=== PATIENT | female | born 1960 | race Caucasian/White ===

== ENCOUNTER 2016-12-12 20:12 | Inpatient (IN) | payer OTHER ==
[2016-12-12 20:34] LABS: Glucose,Whole Blood 100 mg/dL (75-99)
[2016-12-12] MEDS ORDERED: RX INFO: IV CONTRAST WAS GIVEN 1 EACH MISC MISCELLANE PRN (20:36)
[2016-12-12] MEDS ORDERED: diphenhydrAMINE 50 MG/ML 1 ML VIAL IVP STA (20:37)
[2016-12-12] MEDS ORDERED: FAMOTIDINE 20 MG/2 ML VIAL IV STA (20:37)
[2016-12-12] MEDS ORDERED: methylPREDNISolone SOD SUCCI 125 MG/2 ML VIAL IV STA (20:37)
--- NOTE | 2016-12-12 20:41 | ED ---
Neuro HPI - General Chief Complaint: Neuro Symptoms/Deficit Stated Complaint: facial & arm numbness Time Seen by Provider: 12/12/16 20:25 Source: patient, RN notes reviewed Mode of arrival: wheelchair Limitations: no limitations - History of Present Illness Is the patient presenting with stroke symptoms?: Yes Initial Comments: This is a 56-year-old female with history of smoking for many years who states she had the onset around 4:30 today of some right arm weakness but later developed left facial weakness left arm weakness and also some left leg weakness. She states her right arm she believes is secondary to musculoskeletal issues. She also has a nonspecific headache. She's never had a stroke before she was at work trying hard she thought the arm issue with the right arm was from moving parts. No other complaints at this time she has any shortness breath or chest pain. - Related Data Home Medications: Home Medications Medication Instructions Recorded Confirmed ALPRAZolam [Xanax] 1 mg PO TID PRN 01/05/15 12/12/16 Cyclobenzaprine [Flexeril] 10 mg PO TID 01/05/15 12/12/16 HYDROcodone/APAP 10-325MG [Mineral 1 tab PO QID PRN 01/05/15 12/12/16 10-325] Allergies/Adverse Reactions: Allergies Allergy/AdvReac Type Severity Reaction Status Date / Time Iodinated Contrast- Oral and Allergy Intermediate Anaphylaxis Verified 12/12/16 21:15 IV Dye aspirin Allergy Nausea & Verified 12/12/16 21:15 Vomiting Review of Systems ROS Statement: Those systems with pertinent positive or pertinent negative responses have been documented in the HPI. ROS Other: All systems not noted in ROS Statement are negative. General Exam - General Exam Comments Initial Comments: this is a little well-nourished awake alert very anxious appearing femalepatient is noted be hyperventilating. Limitations: no limitations General appearance: alert, anxious, in distress Head exam: Present: atraumatic, normocephalic, normal inspection Eye exam: Present: normal appearance, PERRL, EOMI. Absent: scleral icterus, conjunctival injection, periorbital swelling ENT exam: Present: normal exam, other ((A she'll asymmetry with flattening of nasolabial fold compared to the right forehead appears be spared) Neck exam: Present: normal inspection, tenderness (tenderness palpation of left lateral neck musculature.). Absent: meningismus, lymphadenopathy Respiratory exam: Present: other (patient is noted be hyperventilating) Cardiovascular Exam: Present: regular rate, normal rhythm, normal heart sounds. Absent: systolic murmur, diastolic murmur, rubs, gallop, clicks GI/Abdominal exam: Present: soft, normal bowel sounds. Absent: distended, tenderness, guarding, rebound, rigid Extremities exam: Present: normal inspection, normal capillary refill. Absent: full ROM Back exam: Present: normal inspection Neurological exam: Present: alert, oriented X3, motor sensory deficit. Absent: CN II-XII intact Psychiatric exam: Present: anxious Skin exam: Present: warm, dry, intact, normal color. Absent: rash Stroke MDM - Lab Data Result diagrams: 12/12/16 20:34 12/12/16 20:34 Lab Results 12/12/16 12/12/16 12/12/16 Range/Units 20:33 20:34 20:34 WBC 13.9 H (3.8-10.6) k/uL RBC 4.59 (3.80-5.40) m/uL Hgb 14.7 (11.4-16.0) gm/dL Hct 46.8 H (34.0-46.0) % MCV 101.9 H (80.0-100.0) fL MCH 32.0 (25.0-35.0) pg MCHC 31.4 (31.0-37.0) g/dL RDW 13.3 (11.5-15.5) % Plt Count 569 H (150-450) k/uL Neutrophils % 72 % Lymphocytes % 23 % Monocytes % 4 % Eosinophils % 0 % Basophils % 0 % Neutrophils # 10.1 H (1.3-7.7) k/uL Lymphocytes # 3.1 (1.0-4.8) k/uL Monocytes # 0.5 (0-1.0) k/uL Eosinophils # 0.1 (0-0.7) k/uL Basophils # 0.0 (0-0.2) k/uL Macrocytosis Slight PT (9.0-12.0) sec INR (<1.2) APTT (22.0-30.0) sec Sodium (137-145) mmol/L Potassium (3.5-5.1) mmol/L Chloride (98-107) mmol/L Carbon Dioxide (22-30) mmol/L Anion Gap mmol/L BUN (7-17) mg/dL Creatinine (0.52-1.04) mg/dL Est GFR (MDRD) Af Amer (>60 ml/min/1.73 sqM) Est GFR (MDRD) Non-Af (>60 ml/min/1.73 sqM) Glucose (74-99) mg/dL POC Glucose (mg/dL) 100 H (75-99) mg/dL POC Glu Manager Telemetry ID Fiordaliza Treadwell Calcium (8.4-10.2) mg/dL Total Bilirubin (0.2-1.3) mg/dL AST (14-36) U/L ALT (9-52) U/L Alkaline Phosphatase (38-126) U/L Total Creatine Kinase 52 (30-135) U/L CK-MB (CK-2) 0.9 (0.0-2.4) ng/mL CK-MB (CK-2) Rel Index 1.7 Troponin I <0.012 (0.000-0.034) ng/mL Total Protein (6.3-8.2) g/dL Albumin (3.5-5.0) g/dL 12/12/16 12/12/16 Range/Units 20:34 20:34 WBC (3.8-10.6) k/uL RBC (3.80-5.40) m/uL Hgb (11.4-16.0) gm/dL Hct (34.0-46.0) % MCV (80.0-100.0) fL MCH (25.0-35.0) pg MCHC (31.0-37.0) g/dL RDW (11.5-15.5) % Plt Count (150-450) k/uL Neutrophils % % Lymphocytes % % Monocytes % % Eosinophils % % Basophils % % Neutrophils # (1.3-7.7) k/uL Lymphocytes # (1.0-4.8) k/uL Monocytes # (0-1.0) k/uL Eosinophils # (0-0.7) k/uL Basophils # (0-0.2) k/uL Macrocytosis PT 10.9 (9.0-12.0) sec INR 1.1 (<1.2) APTT 24.9 (22.0-30.0) sec Sodium 142 (137-145) mmol/L Potassium 3.5 (3.5-5.1) mmol/L Chloride 109 H (98-107) mmol/L Carbon Dioxide 19 L (22-30) mmol/L Anion Gap 14 mmol/L BUN 20 H (7-17) mg/dL Creatinine 1.13 H (0.52-1.04) mg/dL Est GFR (MDRD) Af Amer >60 (>60 ml/min/1.73 sqM) Est GFR (MDRD) Non-Af 50 (>60 ml/min/1.73 sqM) Glucose 94 (74-99) mg/dL POC Glucose (mg/dL) (75-99) mg/dL POC Glu Manager Telemetry ID Calcium 10.3 H (8.4-10.2) mg/dL Total Bilirubin 0.3 (0.2-1.3) mg/dL AST 18 (14-36) U/L ALT 23 (9-52) U/L Alkaline Phosphatase 144 H (38-126) U/L Total Creatine Kinase (30-135) U/L CK-MB (CK-2) (0.0-2.4) ng/mL CK-MB (CK-2) Rel Index Troponin I (0.000-0.034) ng/mL Total Protein 8.0 (6.3-8.2) g/dL Albumin 4.9 (3.5-5.0) g/dL - NIH Stroke Scale 1a. Level of Consciousness: (0) alert 1b. LOC Questions: (0) answers correctly 1c. LOC Commands: (0) performs tasks correctly 2. Best Gaze: (0) normal 3. Visual: (0) no visual loss 4. Facial Palsy: (1) minor paralysis 5a. Motor Arm Left: (2) some gravity effort 5b. Motor Arm Right: (0) no drift 6a. Motor Leg Left: (2) some gravity effort 6b. Motor Leg Right: (0) no drift 7. Limb Ataxia: (0) absent 8. Sensory: (1) mild/moderate sensory loss 9. Best Language: (0) no aphasia 10. Dysarthria: (0) normal 11. Extinction/Inattention: (0) no abnormality - Medical Decision Making patient did get improvement in her symptoms she will be admitted with neurological consultation. - EKG Data -: EKG Interpreted by Me EKG shows normal: sinus rhythm (sinus tachycardia rate of 106. 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 Lump on left post mandibular area, soft and movable has had for 2 years. History of Any Multi-Drug Resistant Organisms: None Reported Past Surgical History: Appendectomy, Cholecystectomy, Hysterectomy, Orthopedic Surgery, Tonsillectomy Additional Past Surgical History / Comment(s): right shoulder and left elbow Past Anesthesia/Blood Transfusion Reactions: No Reported Reaction Past Psychological History: Anxiety Smoking Status: Current every day smoker Past Alcohol Use History: None Reported Past Drug Use History: None Reported - Past Family History Mother Family Medical History: Diabetes Mellitus Father Family Medical History: Cancer Additional Family Medical History / Comment(s): of bone cancer Course Vital Signs 12/12/16 12/12/16 12/12/16 20:20 20:46 20:51 Temperature 98.5 F Pulse Rate 90 94 89 Respiratory 20 20 20 Rate Blood Pressure 165/82 142/88 142/83 O2 Sat by Pulse 98 98 100 Oximetry 12/12/16 12/12/16 12/12/16 21:15 21:21 21:36 Temperature Pulse Rate 92 93 89 Respiratory 20 16 16 Rate Blood Pressure 168/96 142/94 139/86 O2 Sat by Pulse 98 98 98 Oximetry 12/12/16 12/12/16 12/12/16 21:54 22:06 22:21 Temperature Pulse Rate 88 88 86 Respiratory 16 16 16 Rate Blood Pressure 126/85 116/83 128/87 O2 Sat by Pulse 98 98 97 Oximetry - Reevaluation(s) Reevaluation #1: 12/12/16 22:16 Reevaluation patient reveals that she has improvement in her symptoms she still feels some numbness to left side of her face Reevaluation #2: 12/12/16 22:37 this case was discussed with interventional radiology patient is not a candidate for TPA or thrombectomy ECTs are negative for acute findings Critical Care Time Critical Care Time: Yes Critical Care Time: 36 minutes of critical care time which includes initial presentation with history physical labs x-rays several reevaluation of the patient to response to initial supportive care discussed with the admitting physician admission orders and documentation of the above. Disposition Clinical Impression: Transient cerebral ischemia Disposition: ADMITTED IP TO THIS [facility] Condition: Stable Referrals: Adi Smith MD [Primary Care Provider] - 1-2 days
[2016-12-12 20:45] LABS: Basophils % (A) 0 %; CH 32.6; CHCM 32.2; Eosinophils # (A) 0.1 k/uL (0-0.7); Eosinophils % (A) 0 %; HCT 46.8 % (34.0-46.0); HGB 14.7 gm/dL (11.4-16.0); Luc # (Auto) 0.13; Luc % (Auto) 1; Lymphocytes # (A) 3.1 k/uL (1.0-4.8); Lymphocytes % (A) 23 %; MCHC 31.4 g/dL (31.0-37.0); MCV 101.9 fL (80.0-100.0); Macrocytosis Slight; Mean Platelet Volume 6.4; Monocytes # (A) 0.5 k/uL (0-1.0); Monocytes % (A) 4 %; Neutrophils # (A) 10.1 k/uL (1.3-7.7); Neutrophils % (A) 72 %; RBC 4.59 m/uL (3.80-5.40); RDW 13.3 % (11.5-15.5); WBC 13.9 k/uL (3.8-10.6); WBC (Perox) 13.35
[2016-12-12 20:56] LABS: INR 1.1 (<1.2); Partial Thromboplastin Time 24.9 sec (22.0-30.0); Prothrombin Time 10.9 sec (9.0-12.0)
[2016-12-12 21:02] LABS: ALT 23 U/L (9-52); AST 18 U/L (14-36); Alkaline Phosphatase 144 U/L (38-126); Anion Gap 14 mmol/L; Blood Urea Nitrogen 20 mg/dL (7-17); Calcium 10.3 mg/dL (8.4-10.2); Carbon Dioxide 19 mmol/L (22-30); Chloride 109 mmol/L (98-107); Glucose 94 mg/dL (74-99); Non-African American GFR(MDRD) 50 (>60 ml/min/1.73 sqM); Potassium 3.5 mmol/L (3.5-5.1); Sodium 142 mmol/L (137-145); Total Bilirubin 0.3 mg/dL (0.2-1.3)
--- NOTE | 2016-12-12 21:03 | CT ---
EXAMINATION TYPE: CT brain wo con for TPA DATE OF EXAM: 12/12/2016 COMPARISON: 06/02/2008 HISTORY: FACIAL NUMBNESS. CT DLP: 998.4 mGycm Automated exposure control for dose reduction was used. FINDINGS: Ventricles and sulci appear normal. There is no mass effect nor midline shift. There is no sign of in tracranial hemorrhage. The calvarium appears intact. IMPRESSION: NEGATIVE CT SCAN OF THE BRAIN. NO CHANGE.
[2016-12-12 21:04] LABS: Creatine Kinase 52 U/L (30-135)
[2016-12-12 21:14] LABS: Creatine Kinase MB 0.9 ng/mL (0.0-2.4); Troponin I <0.012 ng/mL (0.000-0.034)
--- NOTE | 2016-12-12 21:18 | CT ---
EXAMINATION TYPE: CT angio head neck DATE OF EXAM: 12/12/2016 HISTORY: FACIAL NUMBNESS. COMPARISON: NONE CT DLP: 217.1 mGycm. Automated Exposure Control for Dose Reduction was Utilized. TECHNIQUE: CTA scan of the neck is performed with IV Contrast, patient injected with 65 mL of Omnipa que 350, axial images are obtained, coronal and sagittal reformatted images are reviewed. Three-D rec onstructed images are created on an independent workstation and reviewed. FINDINGS: There is cystic enlargement of the right thyroid lobe. There is normal branching pattern of the great vessels on the aortic arch. There is bilateral arterial flow in the vertebral arteries. There is art erial flow in the common internal and external carotid arteries. Carotid arteries appear widely paten t. There is no evidence of dissection. There is arterial flow in the anterior middle and posterior cerebral arteries. There is no sign of an eurysm or neovascularity. There is normal contrast opacification of the venous sinuses. There is rosalie rial flow in the vertebrobasilar artery system. CONCLUSION: Negative CT angiogram of the brain. Negative CT angiogram of the neck.
--- NOTE | 2016-12-12 21:20 | XR ---
EXAMINATION TYPE: XR chest 2V DATE OF EXAM: 12/12/2016 COMPARISON: NONE HISTORY: Altered mental status TECHNIQUE: Frontal and lateral views of the chest are obtained. FINDINGS: The heart and mediastinum are normal. Lungs are clear. Diaphragm is normal. Bony thorax is intact. There are chest leads. IMPRESSION: Normal chest. There is clearing of mild pulmonary interstitial density compared to old e xam.
[2016-12-12] MEDS ORDERED: KETOROLAC 30 MG/ML 1 ML VIAL IVP STA (21:25)
--- NOTE | 2016-12-12 22:41 | ED ---
Medical Decision Making - Medical Decision Making We did discuss the need for smoking cessation the told conversation lasted 3.1 minutes. - Lab Data Result diagrams: 12/12/16 20:34 12/12/16 20:34 Lab Results 12/12/16 12/12/16 12/12/16 Range/Units 20:33 20:34 20:34 WBC 13.9 H (3.8-10.6) k/uL RBC 4.59 (3.80-5.40) m/uL Hgb 14.7 (11.4-16.0) gm/dL Hct 46.8 H (34.0-46.0) % MCV 101.9 H (80.0-100.0) fL MCH 32.0 (25.0-35.0) pg MCHC 31.4 (31.0-37.0) g/dL RDW 13.3 (11.5-15.5) % Plt Count 569 H (150-450) k/uL Neutrophils % 72 % Lymphocytes % 23 % Monocytes % 4 % Eosinophils % 0 % Basophils % 0 % Neutrophils # 10.1 H (1.3-7.7) k/uL Lymphocytes # 3.1 (1.0-4.8) k/uL Monocytes # 0.5 (0-1.0) k/uL Eosinophils # 0.1 (0-0.7) k/uL Basophils # 0.0 (0-0.2) k/uL Macrocytosis Slight PT (9.0-12.0) sec INR (<1.2) APTT (22.0-30.0) sec Sodium (137-145) mmol/L Potassium (3.5-5.1) mmol/L Chloride (98-107) mmol/L Carbon Dioxide (22-30) mmol/L Anion Gap mmol/L BUN (7-17) mg/dL Creatinine (0.52-1.04) mg/dL Est GFR (MDRD) Af Amer (>60 ml/min/1.73 sqM) Est GFR (MDRD) Non-Af (>60 ml/min/1.73 sqM) Glucose (74-99) mg/dL POC Glucose (mg/dL) 100 H (75-99) mg/dL POC Glu Lorry Weigher ID Fiordaliza Treadwell Calcium (8.4-10.2) mg/dL Total Bilirubin (0.2-1.3) mg/dL AST (14-36) U/L ALT (9-52) U/L Alkaline Phosphatase (38-126) U/L Total Creatine Kinase 52 (30-135) U/L CK-MB (CK-2) 0.9 (0.0-2.4) ng/mL CK-MB (CK-2) Rel Index 1.7 Troponin I <0.012 (0.000-0.034) ng/mL Total Protein (6.3-8.2) g/dL Albumin (3.5-5.0) g/dL 12/12/16 12/12/16 Range/Units 20:34 20:34 WBC (3.8-10.6) k/uL RBC (3.80-5.40) m/uL Hgb (11.4-16.0) gm/dL Hct (34.0-46.0) % MCV (80.0-100.0) fL MCH (25.0-35.0) pg MCHC (31.0-37.0) g/dL RDW (11.5-15.5) % Plt Count (150-450) k/uL Neutrophils % % Lymphocytes % % Monocytes % % Eosinophils % % Basophils % % Neutrophils # (1.3-7.7) k/uL Lymphocytes # (1.0-4.8) k/uL Monocytes # (0-1.0) k/uL Eosinophils # (0-0.7) k/uL Basophils # (0-0.2) k/uL Macrocytosis PT 10.9 (9.0-12.0) sec INR 1.1 (<1.2) APTT 24.9 (22.0-30.0) sec Sodium 142 (137-145) mmol/L Potassium 3.5 (3.5-5.1) mmol/L Chloride 109 H (98-107) mmol/L Carbon Dioxide 19 L (22-30) mmol/L Anion Gap 14 mmol/L BUN 20 H (7-17) mg/dL Creatinine 1.13 H (0.52-1.04) mg/dL Est GFR (MDRD) Af Amer >60 (>60 ml/min/1.73 sqM) Est GFR (MDRD) Non-Af 50 (>60 ml/min/1.73 sqM) Glucose 94 (74-99) mg/dL POC Glucose (mg/dL) (75-99) mg/dL POC Glu Lorry Weigher ID Calcium 10.3 H (8.4-10.2) mg/dL Total Bilirubin 0.3 (0.2-1.3) mg/dL AST 18 (14-36) U/L ALT 23 (9-52) U/L Alkaline Phosphatase 144 H (38-126) U/L Total Creatine Kinase (30-135) U/L CK-MB (CK-2) (0.0-2.4) ng/mL CK-MB (CK-2) Rel Index Troponin I (0.000-0.034) ng/mL Total Protein 8.0 (6.3-8.2) g/dL Albumin 4.9 (3.5-5.0) g/dL Disposition Clinical Impression: Transient cerebral ischemia, Smoking Disposition: ADMITTED IP TO THIS HOSP Condition: Stable Referrals: Adi Smith MD [Primary Care Provider] - 1-2 days
[2016-12-12 23:38] VITALS: BMI 21.6
[2016-12-13] MEDS: ALPRAZolam 0.5 MG TAB PO PRN ×4 (00:09→23:11)
[2016-12-13] MEDS: HYDROcodone/APAP 10-325MG 1 EACH TAB PO PRN ×5 (00:09→23:10)
[2016-12-13] MEDS: SODIUM CHLORIDE 0.9% 1,000 ML IV SCH ×3 (01:14→15:41)
[2016-12-13 03:27] LABS: Cholesterol 197 mg/dL (<200); HDL Cholesterol 57 mg/dL (40-60)
[2016-12-13 06:33] LABS: Appearance,Urine Clear (Clear); Bacteria,Urine Rare /hpf; Bilirubin,Urine Negative (Negative); Glucose,Urine (UA) Trace (Negative); Ketones,Urine Trace (Negative); Leukocyte Esterase,Urine Negative (Negative); Mucus,Urine Rare /hpf; Nitrite,Urine Negative (Negative); Particle Count 2945; Protein,Urine 1+ (Negative); RBC,Urine 1 /hpf (0-5); Squamous Epithelial Cell,Urine 3 /hpf (0-4); UA Billing (MACRO vs. MICRO) MICRO; Urobilinogen,Urine <2.0 mg/dL (<2.0); WBC,Urine 6 /hpf (0-5)
--- NOTE | 2016-12-13 07:05 | P.HPIM ---
History of Present Illness H&P Date: 12/13/16 Chief Complaint: Left-sided numbness. Left-sided weakness. This is a history and physical on a 56-year-old white female with history of right shoulder DJD. However, for the last several days intermittently, she's had significant problems related to left facial numbness and weakness of the left side intermittently. She had to leave work yesterday and the symptoms did not resolve on their own. She was admitted secondary to symptomatology. Computed tomography scan of the head did not show acute issue. She does demonstrate left facial weakness. 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 Tobacco use is noted. No voiding difficulties. She states visually sometimes she sees floaters but no overt amaurosis fugax stated. Review of Systems Constitutional: Denies chills, Denies fever Eyes: left tunnel vision/blind spots Ears, nose, mouth and throat: Denies headache, Denies sore throat Cardiovascular: Denies chest pain, Denies shortness of breath Genitourinary: Denies dysuria, Denies hematuria Musculoskeletal: Reports arm numbness/tingling, Reports leg numbness/tingling, Reports shooting arm pain Musculoskeletal: right: shoulder pain Integumentary: Denies pruritus, Denies rash Neurological: Reports paresthesias, Reports weakness Psychiatric: Denies anxiety, Denies depression Past Medical History Past Medical History: Asthma, Cancer, Fibromyalgia, GERD/Reflux, Pneumonia Additional Past Medical History / Comment(s): cancerous cells in hysterectomy but no chemo or radiation, 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 Lump on left post mandibular area, soft and movable has had for 2 years. History of Any Multi-Drug Resistant Organisms: None Reported Past Surgical History: Appendectomy, Cholecystectomy, Hysterectomy, Orthopedic Surgery, Tonsillectomy Additional Past Surgical History / Comment(s): right shoulder and left elbow Past Anesthesia/Blood Transfusion Reactions: Motion Sickness Additional Past Anesthesia/Blood Transfusion Reaction / Comment(s): nausea with anesthesia Past Psychological History: Anxiety Smoking Status: Current every day smoker Past Alcohol Use History: None Reported Past Drug Use History: None Reported - Past Family History Mother Family Medical History: Diabetes Mellitus Father Family Medical History: Cancer Additional Family Medical History / Comment(s): of bone cancer Medications and Allergies Home Medications Medication Instructions Recorded Confirmed Type ALPRAZolam [Xanax] 1 mg PO TID PRN 01/05/15 12/12/16 History Cyclobenzaprine [Flexeril] 10 mg PO TID 01/05/15 12/12/16 History HYDROcodone/APAP 10-325MG [[place]t 1 tab PO QID PRN 01/05/15 12/12/16 History 10-325] Allergies Allergy/AdvReac Type Severity Reaction Status Date / Time Iodinated Contrast- Oral and Allergy Intermediate Anaphylaxis Verified 12/12/16 21:15 IV Dye aspirin Allergy Nausea & Verified 12/12/16 21:15 Vomiting Physical Exam Vitals: Vital Signs Temp Pulse Pulse Resp BP BP Pulse Ox 12/13/16 04:00 81 18 105/58 95 12/13/16 00:00 96.9 F L 85 18 142/73 96 12/12/16 23:03 97.0 F L 56 L 19 103/54 100 12/12/16 22:36 88 16 115/74 98 12/12/16 22:21 86 16 128/87 97 12/12/16 22:06 88 16 116/83 98 12/12/16 21:54 88 16 126/85 98 12/12/16 21:36 89 16 139/86 98 12/12/16 21:21 93 16 142/94 98 12/12/16 21:15 92 20 168/96 98 12/12/16 20:51 89 20 142/83 100 12/12/16 20:46 94 20 142/88 98 12/12/16 20:20 98.5 F 90 20 165/82 98 Intake and Output 12/12/16 12/13/16 12/13/16 22:59 06:59 14:59 Intake Total 300 Balance 300 Intake: Oral 300 Other: Voiding Method Bedside Commode Weight 58.967 kg 52 kg - Constitutional General appearance: no acute distress - EENT Eyes: EOMI - Neck Neck: no lymphadenopathy Carotids: bilateral: upstroke normal Thyroid: bilateral: normal size - Respiratory Respiratory: bilateral: CTA - Cardiovascular Rhythm: regular Heart sounds: normal: S1, S2 Abnormal Heart Sounds: no S3 Gallop - Gastrointestinal General gastrointestinal: soft, no tenderness - Musculoskeletal Musculoskeletal: left sided weakness - Psychiatric Psychiatric: A&O x's 3 Results CBC & Chem 7: 12/12/16 20:34 12/12/16 20:34 Labs: Abnormal Lab Results - Last 24 Hours (Table) 12/12/16 12/12/16 12/12/16 Range/Units 20:33 20:34 20:34 WBC 13.9 H (3.8-10.6) k/uL Hct 46.8 H (34.0-46.0) % MCV 101.9 H (80.0-100.0) fL Plt Count 569 H (150-450) k/uL Neutrophils # 10.1 H (1.3-7.7) k/uL Chloride 109 H (98-107) mmol/L Carbon Dioxide 19 L (22-30) mmol/L BUN 20 H (7-17) mg/dL Creatinine 1.13 H (0.52-1.04) mg/dL POC Glucose (mg/dL) 100 H (75-99) mg/dL Calcium 10.3 H (8.4-10.2) mg/dL Alkaline Phosphatase 144 H (38-126) U/L Triglycerides (<150) mg/dL LDL Cholesterol, Calc (0-99) mg/dL Urine Protein (Negative) Urine Glucose (UA) (Negative) Urine Ketones (Negative) Urine Blood (Negative) Urine WBC (0-5) /hpf Urine Bacteria (None) /hpf Hyaline Casts (0-2) /lpf Urine Mucus (None) /hpf Urine Opiates Screen (NotDetected) U Tricyclic Antidepress (NotDetected) U Benzodiazepines Scrn (NotDetected) 12/12/16 12/13/16 Range/Units 20:34 05:43 WBC (3.8-10.6) k/uL Hct (34.0-46.0) % MCV (80.0-100.0) fL Plt Count (150-450) k/uL Neutrophils # (1.3-7.7) k/uL Chloride (98-107) mmol/L Carbon Dioxide (22-30) mmol/L BUN (7-17) mg/dL Creatinine (0.52-1.04) mg/dL POC Glucose (mg/dL) (75-99) mg/dL Calcium (8.4-10.2) mg/dL Alkaline Phosphatase (38-126) U/L Triglycerides 199 H (<150) mg/dL LDL Cholesterol, Calc 100 H (0-99) mg/dL Urine Protein 1+ H (Negative) Urine Glucose (UA) Trace H (Negative) Urine Ketones Trace H (Negative) Urine Blood Small H (Negative) Urine WBC 6 H (0-5) /hpf Urine Bacteria Rare H (None) /hpf Hyaline Casts 47 H (0-2) /lpf Urine Mucus Rare H (None) /hpf Urine Opiates Screen Detected H (NotDetected) U Tricyclic Antidepress Detected H (NotDetected) U Benzodiazepines Scrn Detected H (NotDetected) Thrombosis Risk Factor Assmnt - Choose All That Apply Any of the Below Risk Factors Present?: Yes Each Factor Represents 1 point: Age 41-60 years Other Risk Factors: No Other congenital or acquired thrombophilia - If yes, enter type in comment: Yes Each Risk Factor Represents 5 Points: Stroke (< 1 month) Thrombosis Risk Factor Assessment Total Risk Factor Score: 6 Thrombosis Risk Factor Assessment Level: High Risk Assessment and Plan (1) Left-sided weakness Current Visit: Yes Status: Acute Code(s): R53.1 - WEAKNESS SNOMED Code(s) : 973208066 (2) Weakness on left side of face Current Visit: Yes Status: Acute Code(s): R29.810 - FACIAL WEAKNESS SNOMED Code(s): 90390127 (3) Smoking Current Visit: Yes Status: Acute Code(s): F17.200 - NICOTINE DEPENDENCE, UNSPECIFIED, UNCOMPLICATED SNOMED Code(s): 16911367 (4) Transient cerebral ischemia Current Visit: Yes Status: Acute Code(s): G45.9 - TRANSIENT CEREBRAL ISCHEMIC ATTACK, UNSPECIFIED SNOMED Code(s): 853005325 (5) Anxiety Current Visit: No Status: Acute Code(s): F41.9 - ANXIETY DISORDER, UNSPECIFIED SNOMED Code(s): 94704856 Plan: TIA element. Check echocardiogram and carotid Doppler. Question need for MRI of the head. Neurology is consulted. Reconcile home medications. PT/OT evaluation. See orders otherwise. Given observe symptoms, prognosis is guarded. Otherwise, she is a full code. Time with Patient: Greater than 30
[2016-12-13] MEDS: CYCLOBENZAPRINE 10 MG TAB PO SCH ×3 (09:03→21:37)
[2016-12-13] MEDS: CLOPIDOGREL 75 MG TAB PO SCH (09:43)
--- NOTE | 2016-12-13 10:44 | US ---
EXAMINATION TYPE: US carotid duplex BILAT DATE OF EXAM: 12/13/2016 COMPARISON: CT angiogram of the neck 12/12/2016 CLINICAL HISTORY: Stenosis. Left-sided weakness and numbness EXAM MEASUREMENTS: RIGHT: Peak Systolic Velocity (PSV) cm/sec ----- Right CCA: 85.7 ----- Right ICA: 81.3 ----- Right ECA: 117.6 ICA/CCA ratio: 0.9 RIGHT: End Diastole cm/sec ----- Right CCA: 27.5 ----- Right ICA: 27.5 ----- Right ECA: 23.1 LEFT: Peak Systolic Velocity (PSV) cm/sec ----- Left CCA: 83.2 ----- Left ICA: 91.1 ----- Left ECA: 76.6 ICA/CCA ratio: 1.1 LEFT: End Diastole cm/sec ----- Left CCA: 31.6 ----- Left ICA: 40.9 ----- Left ECA: 17.1 VERTEBRALS (direction of flow): Right Vertebral: Antegrade Left Vertebral: Antegrade Rhythm: Normal Mild amount of plaque visualized in the left mid/distal CCA. No elevated velocities, no significant s tenosis Grayscale, color Doppler, spectral Doppler imaging performed of the carotid arteries IMPRESSION: No hemodynamic significant stenosis of the proximal internal carotid arteries bilaterall y, an indirect measurement of carotid stenosis
--- NOTE | 2016-12-13 10:54 | ECHOF ---
Referral Reason:TIA element MEASUREMENTS -------- HEIGHT: 165.1 cm WEIGHT: 51.7 kg BP: 105/58 RVIDd: 3.4 cm (< 3.3) IVSd: 1.2 cm (0.6 - 1.1) LVIDd: 4.6 cm (3.9 - 5.3) LVPWd: 1.1 cm (0.6 - 1.1) IVSs: 1.3 cm LVIDs: 3.2 cm LVPWs: 1.3 cm LA Diam: 2.9 cm (2.7 - 3.8) LAESV Index (A-L): 24.75 ml/m Ao Diam: 3.2 cm (2.0 - 3.7) AV Cusp: 1.5 cm (1.5 - 2.6) EPSS: 0.8 cm MV E Jony: 0.76 m/s MV DecT: 222 ms MV A Jony: 0.84 m/s MV E/A Ratio: 0.90 AV maxP.05 mmHg AV meanP.55 mmHg MV EF SLOPE: 77.33 mm/s (70 - 150) MV EXCURSION: 1.78 cm (> 18.000) FINDINGS -------- Sinus rhythm. This was a technically adequate study. The left ventricular size is normal. There is borderline concentric left ventricular hypertrophy. Overall left ventricular systolic function is normal with, an EF between 55 - 60 %. The right ventricle is mildly enlarged. Normal LA size by volume 22+/-6 ml/m2. The right atrium is normal in size. There is mild aortic valve sclerosis. There is mild aortic stenosis present. Peak/mean gradient a cross the Aortic Valve is 16.05mmHg / 8.55mmHg. The mitral valve leaflets are mildly thickened. There is trace mitral regurgitation. The tricuspid valve appears structurally normal. Trace/mild (physiologic) pulmonic regurgitation. The aortic root size is normal. Normal inferior vena cava with normal inspiratory collapse consistent with estimated right atrial pre ssure of 5 mmHg. There is no pericardial effusion. CONCLUSIONS -------- 1. Sinus rhythm. 2. This was a technically adequate study. 3. There is borderline concentric left ventricular hypertrophy. 4. Overall left ventricular systolic function is normal with, an EF between 55 - 60 %. 5. The right ventricle is mildly enlarged. 6. Normal LA size by volume 22+/-6 ml/m2. 7. There is mild aortic valve sclerosis. 8. There is mild aortic stenosis present. 9. Peak/mean gradient across the Aortic Valve is 16.05mmHg / 8.55mmHg. 10. The mitral valve leaflets are mildly thickened. 11. There is trace mitral regurgitation. 12. The tricuspid valve appears structurally normal. 13. Trace/mild (physiologic) pulmonic regurgitation. 14. The aortic root size is normal. 15. Normal inferior vena cava with normal inspiratory collapse consistent with estimated right atrial pressure of 5 mmHg. 16. There is no pericardial effusion. 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
[2016-12-13] MEDS: ONDANSETRON 4 MG/2 ML VIAL IVP PRN ×2 (14:06→19:35)
--- NOTE | 2016-12-13 14:48 | XR ---
Left ankle HISTORY: Pain 3 views of the left ankle Bone mineralization is reduced, joint spaces and alignment are maintained. No fracture or dislocation . No significant soft tissue swelling. Proximal fifth metatarsal not included on the exam. IMPRESSION: Suspect mild osteopenia.
--- NOTE | 2016-12-13 19:18 | P.CNNES ---
History of Present Illness Consult date: 12/13/16 History of Present Illness: the patient is a 56-year-old right-handed white female who reports that yesterday she developed right arm weakness at work/2 for about 5 minutes and then she developed some nausea and headache and she decided to drive herself home [place]. After she got home she developed left facial numbness and left arm and leg numbness the patient also reports that for about 5 minutes she couldn't speak. Her numbness continues on the left face arm and leg but her speech has been remained stable. The patient denied any symptoms like this in the past. He denied passing out. There was no double vision. She denied any headache. She has a history of long -standing history of smoking and currently smokes one pack of cigarettes a day. She had a CAT scan of the brain which was negative. She had carotid ultrasound which was negative. Which was unremarkable.at a CT angiogram of the brain and neck which was negative. The ER doctor did discuss the case with the interventional radiologist who felt that the patient was not a candidate for TPA. The current complaint is left-sided numbness. He does not take aspirin as it does cause her nausea. Risk factor for stroke is family history of stroke and smoking history. 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 Lump on left post mandibular area, soft and movable has had for 2 years. History of Any Multi-Drug Resistant Organisms: None Reported Past Surgical History: Appendectomy, Cholecystectomy, Hysterectomy, Orthopedic Surgery, Tonsillectomy Additional Past Surgical History / Comment(s): right shoulder and left elbow Past Anesthesia/Blood Transfusion Reactions: Motion Sickness Additional Past Anesthesia/Blood Transfusion Reaction / Comment(s): nausea with anesthesia Past Psychological History: Anxiety Smoking Status: Current every day smoker Past Alcohol Use History: None Reported Past Drug Use History: None Reported - Past Family History Mother Family Medical History: Diabetes Mellitus Father Family Medical History: Cancer Additional Family Medical History / Comment(s): of bone cancer Medications and Allergies Home Medications Medication Instructions Recorded Confirmed Type ALPRAZolam [Xanax] 1 mg PO TID PRN 01/05/15 12/12/16 History Cyclobenzaprine [Flexeril] 10 mg PO TID 01/05/15 12/12/16 History HYDROcodone/APAP 10-325MG [[place] 1 tab PO QID PRN 01/05/15 12/12/16 History 10-325] Allergies Allergy/AdvReac Type Severity Reaction Status Date / Time Iodinated Contrast- Oral and Allergy Intermediate Anaphylaxis Verified 12/12/16 21:15 IV Dye aspirin Allergy Nausea & Verified 12/12/16 21:15 Vomiting Physical Examination - Vital Signs Vital Signs: Vital Signs Temp Pulse Pulse Resp BP BP Pulse Ox 12/13/16 16:00 98.3 F 78 16 105/68 92 L 12/13/16 13:55 98.4 F 80 24 128/75 92 L 12/13/16 11:07 97.6 F 87 20 106/57 92 L 12/13/16 09:01 97.2 F L 90 20 106/70 94 L 12/13/16 04:00 81 18 105/58 95 12/13/16 00:00 96.9 F L 85 18 142/73 96 12/12/16 23:03 97.0 F L 56 L 19 103/54 100 12/12/16 22:36 88 16 115/74 98 12/12/16 22:21 86 16 128/87 97 12/12/16 22:06 88 16 116/83 98 12/12/16 21:54 88 16 126/85 98 12/12/16 21:36 89 16 139/86 98 12/12/16 21:21 93 16 142/94 98 12/12/16 21:15 92 20 168/96 98 12/12/16 20:51 89 20 142/83 100 12/12/16 20:46 94 20 142/88 98 12/12/16 20:20 98.5 F 90 20 165/82 98 Intake and Output 12/13/16 12/13/16 12/13/16 06:59 14:59 22:59 Intake Total 300 476 236 Balance 300 476 236 Intake: IV 0 Sodium Chloride 0.9% 1, 0 000 ml @ 50 mls/hr IV . Q20H [facility] Rx#:[id number] Intake, IV Titration 0 Amount Sodium Chloride 0.9% 1, 0 000 ml @ 50 mls/hr IV . Q20H [facility] Rx#:[id number] Oral 300 476 236 Other: Voiding Method Bedside Commode Bedside Commode Bedside Commode Weight 52 kg - Constitutional General appearance: average body habitus - EENT EENT: PERRL, hearing intact, vision intact - Respiratory Respiratory: lungs clear - Cardiovascular Cardiovascular: regular rate, normal S1, normal S2 - Neurologic mental status: She was awake alert and oriented there was no a aphasia or dysarthria Cranial nerve examination: tongue midline, facial droop Speech examination: intact Detailed motor examination: other (she did have some mild left hemiparesis) Detailed sensory examination: other (she did have minimal left-sided numbness) - Psychiatric Psychiatric: mood/affect appropriate Results - Laboratory Findings CBC and BMP: 12/12/16 20:34 12/12/16 20:34 Abnormal Lab Findings: Abnormal Labs 12/12/16 12/12/16 12/12/16 20:33 20:34 20:34 WBC 13.9 H Hct 46.8 H MCV 101.9 H Plt Count 569 H Neutrophils # 10.1 H Chloride 109 H Carbon Dioxide 19 L BUN 20 H Creatinine 1.13 H POC Glucose (mg/dL) 100 H Calcium 10.3 H Alkaline Phosphatase 144 H Triglycerides LDL Cholesterol, Calc Ur Specific [place] Urine Protein Urine Glucose (UA) Urine Ketones Urine Blood Urine WBC Urine Bacteria Hyaline Casts Urine Mucus Urine Opiates Screen U Tricyclic Antidepress U Benzodiazepines Scrn 12/12/16 12/13/16 20:34 05:43 WBC Hct MCV Plt Count Neutrophils # Chloride Carbon Dioxide BUN Creatinine POC Glucose (mg/dL) Calcium Alkaline Phosphatase Triglycerides 199 H LDL Cholesterol, Calc 100 H Ur Specific [place] 1.050 H Urine Protein 1+ H Urine Glucose (UA) Trace H Urine Ketones Trace H Urine Blood Small H Urine WBC 6 H Urine Bacteria Rare H Hyaline Casts 47 H Urine Mucus Rare H Urine Opiates Screen Detected H U Tricyclic Antidepress Detected H U Benzodiazepines Scrn Detected H Assessment and Plan (1) Stroke Current Visit: Yes Status: Acute SNOMED Code(s): 941666636 (2) Left hemiparesis Current Visit: Yes Status: Acute SNOMED Code(s): 222663342 Plan: The patient is a 56-year-old woman who presents to the hospital with acute left- sided sensory and motor symptoms. Patient has likely had a right subcortical infarct. She has been started on Plavix..she has had a carotid ultrasound and echocardiogram as well as a CT angiogram of the neck and brain. MRI of the brain and PT OT. The patient isunclear about loss of consciousness but thinks that she did not pass out.
[2016-12-13] MEDS: ASPIRIN 325 MG TAB PO SCH (21:21)
[2016-12-13] MEDS: FAMOTIDINE 20 MG TAB PO SCH (21:21)
[2016-12-14] MEDS: ONDANSETRON 4 MG/2 ML VIAL IVP PRN ×2 (03:14→12:59)
[2016-12-14] MEDS: HYDROcodone/APAP 10-325MG 1 EACH TAB PO PRN ×3 (06:00→19:39)
[2016-12-14 06:21] LABS: CH 31.5; CHCM 30.8; HCT 38.1 % (34.0-46.0); HDW 2.14; Hypochromasia Slight; MCH 32.4 pg (25.0-35.0); MCHC 31.5 g/dL (31.0-37.0); MCV 103.1 fL (80.0-100.0); Macrocytosis Slight; Mean Platelet Volume 6.9; RBC 3.69 m/uL (3.80-5.40); RDW 14.5 % (11.5-15.5); WBC 9.2 k/uL (3.8-10.6)
[2016-12-14 06:40] LABS: ALT 29 U/L (9-52); AST 13 U/L (14-36); Alkaline Phosphatase 100 U/L (38-126); Anion Gap 7 mmol/L; Blood Urea Nitrogen 23 mg/dL (7-17); Carbon Dioxide 20 mmol/L (22-30); Chloride 114 mmol/L (98-107); Glucose 88 mg/dL (74-99); Non-African American GFR(MDRD) >60 (>60 ml/min/1.73 sqM); Potassium 4.3 mmol/L (3.5-5.1); Sodium 141 mmol/L (137-145); Total Bilirubin 0.1 mg/dL (0.2-1.3); Total Protein 5.8 g/dL (6.3-8.2)
[2016-12-14] MEDS: ALPRAZolam 0.5 MG TAB PO PRN ×3 (06:40→22:30)
--- NOTE | 2016-12-14 07:21 | US ---
EXAMINATION TYPE: US venous doppler duplex LE LT DATE OF EXAM: 12/13/2016 3:40 PM COMPARISON: NONE CLINICAL HISTORY: r/o dvt. Left leg pain, exam done portable. SIDE PERFORMED: Left TECHNIQUE: The lower extremity deep venous system is examined utilizing real time linear array sonog ashvin with graded compression, doppler sonography and color-flow sonography. VESSELS IMAGED: External Iliac Vein (EIV) Common Femoral Vein Deep Femoral Vein Greater Saphenous Vein * Femoral Vein Popliteal Vein Small Saphenous Vein * Proximal Calf Veins (* superficial vessels) Left Leg: Appears negative for DVT Grayscale, color doppler, spectral doppler imaging performed of the deep veins of the lower extremiti es. There is normal flow, compressibility, vascular waveforms. IMPRESSION: No sonographic evidence of deep venous thrombosis within the left lower extremity.
[2016-12-14] MEDS: ASPIRIN 325 MG TAB PO SCH (08:45)
[2016-12-14] MEDS: CYCLOBENZAPRINE 10 MG TAB PO SCH ×3 (08:45→22:30)
[2016-12-14] MEDS: CLOPIDOGREL 75 MG TAB PO SCH (08:45)
[2016-12-14] MEDS: SODIUM CHLORIDE 0.9% 1,000 ML IV SCH (08:46)
[2016-12-14] MEDS ORDERED: LORazepam 2 MG/ML INJ IV STA (10:12)
--- NOTE | 2016-12-14 13:21 | P.CONS ---
History of Present Illness - Chief Complaint Gait disturbance - History of Present Illness I had the opportunity to see patient for inpatient rehab consultation with regard to gait disturbance, today. She was admitted to [facility] December 12 with history of fall. Reports right and left arm weakness as well as left facial weakness. Seen by for stroke. Angio-Seal CT and head CT were negative as well as chest x-ray. Left ankle x-ray with osteopenia only. Left leg Doppler negative for DVT. Carotid duplex negative. Brain MRI report pending. PT reports moderate assistance for bed mobility and sitting. Unable take steps currently. OT reports minimal assistance for upper dressing and maximal assist for lower dressing toileting and moderate assistance for bathing. Speech therapy following, speech intelligible. Previous functional history as elicited from patient: 56-year-old right-handed white female who is and alternates between a son and a daughter's home , 2 floor home. Works full-time. Describes independent with own cooking, laundry, driving, standing shower and gait without device. Dr. Smith regular doctor. Does smoke. Family history of cancer in father. Didn't know her mother. Review of Systems Review of systems: ENT: Denies sneezes or discharge. Eyes: Denies discharge or photophobia. Cardiac: Denies chest pain or palpitation. Pulmonary: Denies cough or shortness of breath. Breast: Denies discharge or lumps. Gastrointestinal: Denies nausea, emesis, constipation, diarrhea. Genitourinary: Denies discharge or frequency. Musculoskeletal: Discomfort and right shoulder, left arm, low back and left leg especially at ankle. Neurologic: Weakness in both arms and legs. Endocrine: Denies shakes or sweats. Oncology: Denies cancers. Dermatologic: Denies rash, itching, pruritus. ALLERGY/immunology: Denies sneezes, rashes. 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 Lump on left post mandibular area, soft and movable has had for 2 years. History of Any Multi-Drug Resistant Organisms: None Reported Past Surgical History: Appendectomy, Cholecystectomy, Hysterectomy, Orthopedic Surgery, Tonsillectomy Additional Past Surgical History / Comment(s): right shoulder and left elbow Past Anesthesia/Blood Transfusion Reactions: Motion Sickness Additional Past Anesthesia/Blood Transfusion Reaction / Comm: nausea with anesthesia Past Psychological History: Anxiety Smoking Status: Current every day smoker Past Alcohol Use History: None Reported Past Drug Use History: None Reported - Past Family History Mother Family Medical History: Diabetes Mellitus Father Family Medical History: Cancer Additional Family Medical History / Comment(s): of bone cancer Medications and Allergies Home Medications Medication Instructions Recorded Confirmed Type ALPRAZolam [Xanax] 1 mg PO TID PRN 01/05/15 12/12/16 History Cyclobenzaprine [Flexeril] 10 mg PO TID 01/05/15 12/12/16 History HYDROcodone/APAP 10-325MG [[place] 1 tab PO QID PRN 01/05/15 12/12/16 History 10-325] Allergies Allergy/AdvReac Type Severity Reaction Status Date / Time Iodinated Contrast- Oral and Allergy Intermediate Anaphylaxis Verified 12/12/16 21:15 IV Dye aspirin Allergy Nausea & Verified 12/12/16 21:15 Vomiting Physical Exam Vitals: Vital Signs Temp Pulse Resp BP Pulse Ox 12/14/16 08:47 97.7 F 78 18 94/51 94 L 12/14/16 08:27 98 12/14/16 03:15 98.1 F 73 20 100/56 93 L 12/13/16 23:38 97.2 F L 73 20 105/58 93 L 12/13/16 21:00 97.8 F 82 18 97/58 92 L 12/13/16 16:00 98.3 F 78 16 105/68 92 L 12/13/16 13:55 98.4 F 80 24 128/75 92 L Intake and Output 12/13/16 12/14/16 12/14/16 22:59 06:59 14:59 Intake Total 236 1090 200 Output Total 800 Balance 236 290 200 Intake: IV 0 550 Sodium Chloride 0.9% 1, 0 550 000 ml @ 50 mls/hr IV . Q20H [facility] Rx#:[id number] Oral 236 540 200 Output: Urine 800 Other: Voiding Method Bedside Commode Bedside Commode Bedside Commode Weight 55.5 kg Skin: Good color, texture, turgor. General: Medium build and comfortable appearance. Head: Normocephalic, atraumatic. Eyes: Symmetric. Pupils equal round. Ears: Symmetric. Hearing within normal limits. Mouth: Clear. Neck: Supple. Carotid without bruit. Cardiac: Regular rate and rhythm. Lungs: Clear anteriorly and posteriorly. Abdomen: Soft active nontender. Extremities: Normal tone. Neurological: Mental status: Alert, cooperative, pleasant. Cranial nerves: Symmetric facial tone and trapezius. Motor: Able to actively elevate right arm. Right leg demonstrates ability elevate off bed at about 2+ over 5. Left arm and leg poor. Sensation: Intact throughout but depressed on left side and leg. DTRs: Symmetric and equal throughout. Mobility: Sits with assistance. Results CBC & Chem 7: 12/14/16 05:59 12/14/16 05:59 Labs: Abnormal Lab Results - Last 24 Hours (Table) 12/14/16 12/14/16 Range/Units 05:59 05:59 RBC 3.69 L (3.80-5.40) m/uL MCV 103.1 H (80.0-100.0) fL Chloride 114 H (98-107) mmol/L Carbon Dioxide 20 L (22-30) mmol/L BUN 23 H (7-17) mg/dL Total Bilirubin 0.1 L (0.2-1.3) mg/dL AST 13 L (14-36) U/L Total Protein 5.8 L (6.3-8.2) g/dL Albumin 3.3 L (3.5-5.0) g/dL Chest x-ray: report reviewed (Negative) CT Scan - head: report reviewed (Negative) MRI - head: report reviewed (Pending) Venous US: report reviewed (Left leg Doppler negative for DVT. Carotid duplex negative.) Assessment and Plan (1) Left hemiparesis Current Visit: Yes Status: Acute Code(s): G81.94 - HEMIPLEGIA, UNSPECIFIED AFFECTING LEFT NONDOMINANT SIDE SNOMED Code(s): 554116883 Plan: Impression: 1. Gait disturbance. 2. Acute onset stroke right MCA with resultant left hemiparesthesias nondominant side. 3. Multiple aches and pains. 4. Asthma. 5. Fibromyalgia. 6. Reflux. 7. History of cancer. Comments and plan: At this time PT, OT, [employer] ongoing. Safety concerns noted. At this time, would anticipate need and benefit of inpatient rehab. Would anticipate return to home alternating between son and daughter is previously.
--- NOTE | 2016-12-14 13:53 | MR ---
"EXAMINATION TYPE: MR brain wo con DATE OF EXAM: 12/14/2016 COMPARISON: CT angiogram and CT brain dated 12/12/2016 for TPA HISTORY: stroke TECHNIQUE: Multiplanar, multisequence images of the brain and brainstem is performed without intravenous contras t. FINDINGS: Diffusion weighted images demonstrate focal cortical area of restricted diffusion in the pe ripheral precentral gyrus in the distribution of the right middle cerebral artery. Numerous foci of T 2/FLAIR hyperintensity are scattered throughout the periventricular and subcortical white matter thes e are also seen in a pericallosal distribution. There is no extra-axial fluid collection or significant white matter signal abnormality. The ventric ular system and cisternal spaces are normal in size and appearance. The brain volume is age appropri ate. Midline structures demonstrate normal morphology. The craniocervical junction appears within normal limits. Scant amount of mucosal thickening is seen within the left ethmoid sinuses. Small amount of f luid is also seen within the left anterior mastoid air cells. The remaining visualized sinuses are cl ear and the globes are intact. IMPRESSION: 1. Acute distal branch vessel cortical infarct in the peripheral precentral gyrus/primary motor holly x in the distribution of the middle cerebral artery. 2. Numerous, moderate burden, nonspecific white matter changes in a pericallosal, subcortical, and pe riventricular distribution. These can be seen in chronic small vessel ischemia, vasculitic disease, a nd demyelinating disease given the distribution. A [place] message has been communicated to Autumn Srivastava via the [employer] | Critical Result sys tem on 12/14/2016 1:50 PM, Message ID [id number]."
[2016-12-14 16:48] LABS: Glucose,Whole Blood 118 mg/dL (75-99)
[2016-12-14] MEDS: FAMOTIDINE 20 MG TAB PO SCH (19:39)
--- NOTE | 2016-12-14 20:11 | P.PN ---
Subjective Progress Note Date: 12/14/16 The patient is a 56-year-old woman who presented to the hospital with acute onset left-sided weakness. The patient reports that she continues to experience some weakness on the left side. She denied any new complaints. She did complain of left ankle pain. The patient had an MRI of the brain which showed right MCA territory infarct. The patient is on Plavix. The patient has no double vision or slurred speech. She denies any headache. Objective - Vital Signs Vital signs: Vital Signs Temp 97 F L 12/14/16 15:09 Pulse 80 12/14/16 15:09 Resp 18 12/14/16 15:09 BP 92/46 12/14/16 15:09 Pulse Ox 94 L 12/14/16 15:09 Intake & Output 12/14/16 12/14/16 12/15/16 06:59 18:59 06:59 Intake Total 1090 840 Output Total 800 Balance 290 840 Weight 55.5 kg Intake: IV 550 Sodium Chloride 0.9% 1, 550 000 ml @ 50 mls/hr IV . Q20H [facility] Rx#:[id number] Intake, IV Titration 400 Amount Sodium Chloride 0.9% 1, 400 000 ml @ 50 mls/hr IV . Q20H [facility] Rx#:[id number] Oral 540 440 Output: Urine 800 Other: Voiding Method Bedside Commode Bedside Commode - Constitutional General appearance: Present: average body habitus - Respiratory Respiratory: bilateral: CTA - Cardiovascular Rhythm: regular - Neurologic Neurologic: Present: CNII-XII intact - Musculoskeletal Musculoskeletal: Present: left sided weakness - Psychiatric Psychiatric: Present: A&O x's 3 - Labs CBC & Chem 7: 12/14/16 05:59 12/14/16 05:59 Labs: Abnormal Lab Results - Last 24 Hours (Table) 12/14/16 12/14/16 12/14/16 Range/Units 05:59 05:59 16:46 RBC 3.69 L (3.80-5.40) m/uL MCV 103.1 H (80.0-100.0) fL Chloride 114 H (98-107) mmol/L Carbon Dioxide 20 L (22-30) mmol/L BUN 23 H (7-17) mg/dL POC Glucose (mg/dL) 118 H (75-99) mg/dL Total Bilirubin 0.1 L (0.2-1.3) mg/dL AST 13 L (14-36) U/L Total Protein 5.8 L (6.3-8.2) g/dL Albumin 3.3 L (3.5-5.0) g/dL Assessment and Plan (1) Stroke Current Visit: Yes Status: Acute SNOMED Code(s): 295796023 (2) Left hemiparesis Current Visit: Yes Status: Acute SNOMED Code(s): 847954904 Plan: The patient is a 56-year-old woman with acute onset right subcortical infarct. She continues to have a left hemiparesis. She has improved in strength with the left upper extremity. She continues to have some left leg weakness. Continue PT OT and patient is being evaluated for rehab.
[2016-12-15] MEDS: HYDROcodone/APAP 10-325MG 1 EACH TAB PO PRN ×4 (04:15→22:17)
[2016-12-15] MEDS: SODIUM CHLORIDE 0.9% 1,000 ML IV SCH (04:33)
[2016-12-15] MEDS: ALPRAZolam 0.5 MG TAB PO PRN ×3 (06:24→22:17)
--- NOTE | 2016-12-15 07:51 | P.PN ---
Subjective Progress Note Date: 12/15/16 Principal diagnosis: CVA This is a 56-year-old white female essentially with sided weakness. The patient has hemiparesis which is slowly improving. MRI does show CVA of the mid middle cervical artery. Pain is improving otherwise. Objective - Vital Signs Vital signs: Vital Signs Temp 97.0 F L 12/15/16 03:20 Pulse 69 12/15/16 03:20 Resp 18 12/15/16 03:20 BP 102/62 12/15/16 03:20 Pulse Ox 94 L 12/15/16 03:20 Intake & Output 12/14/16 12/15/16 12/15/16 18:59 06:59 18:59 Intake Total 840 Output Total 1600 Balance 840 -1600 Weight 56.1 kg Intake: Intake, IV Titration 400 Amount Sodium Chloride 0.9% 1, 400 000 ml @ 50 mls/hr IV . Q20H [facility] Rx#:[id number] Oral 440 Output: Urine 1600 Other: Voiding Method Bedside Commode Bedside Commode - Constitutional General appearance: Present: thin - EENT Eyes: Absent: abnormal pupil - Respiratory Respiratory: bilateral: CTA - Cardiovascular Rhythm: regular Heart sounds: normal: S1, S2 - Gastrointestinal General gastrointestinal: Present: soft. Absent: tenderness - Neurologic Neurologic: Present: focal deficits - Musculoskeletal Musculoskeletal: Present: left sided weakness - Labs CBC & Chem 7: 12/14/16 05:59 12/14/16 05:59 Labs: Abnormal Lab Results - Last 24 Hours (Table) 12/14/16 Range/Units 16:46 POC Glucose (mg/dL) 118 H (75-99) mg/dL Assessment and Plan (1) Left-sided weakness Current Visit: Yes Status: Acute Code(s): R53.1 - WEAKNESS SNOMED Code(s) : 740377284 (2) Weakness on left side of face Current Visit: Yes Status: Acute Code(s): R29.810 - FACIAL WEAKNESS SNOMED Code(s): 49041003 (3) Smoking Current Visit: Yes Status: Acute Code(s): F17.200 - NICOTINE DEPENDENCE, UNSPECIFIED, UNCOMPLICATED SNOMED Code(s): 00341872 (4) Transient cerebral ischemia Current Visit: Yes Status: Acute Code(s): G45.9 - TRANSIENT CEREBRAL ISCHEMIC ATTACK, UNSPECIFIED SNOMED Code(s): 072581964 (5) Anxiety Current Visit: No Status: Acute Code(s): F41.9 - ANXIETY DISORDER, UNSPECIFIED SNOMED Code(s): 82146838 Plan: We'll continue rehab today. Anticipate transfer to inpatient rehab at [facility]. See orders otherwise.
[2016-12-15] MEDS: CLOPIDOGREL 75 MG TAB PO SCH (08:59)
[2016-12-15] MEDS: CYCLOBENZAPRINE 10 MG TAB PO SCH ×3 (08:59→22:17)
[2016-12-15] MEDS: ASPIRIN 325 MG TAB PO SCH (08:59)
[2016-12-15] MEDS: ONDANSETRON 4 MG/2 ML VIAL IVP PRN (09:34)
[2016-12-15] MEDS: FAMOTIDINE 20 MG TAB PO SCH (22:17)
[2016-12-16 01:55] VITALS: RESP 16
[2016-12-16] MEDS: HYDROcodone/APAP 10-325MG 1 EACH TAB PO PRN ×3 (04:34→14:48)
[2016-12-16 07:55] VITALS: TEMP 97
[2016-12-16] MEDS: CLOPIDOGREL 75 MG TAB PO SCH (07:57)
[2016-12-16] MEDS: ALPRAZolam 0.5 MG TAB PO PRN ×2 (07:57→13:59)
[2016-12-16] MEDS: ASPIRIN 325 MG TAB PO SCH (07:58)
[2016-12-16] MEDS: CYCLOBENZAPRINE 10 MG TAB PO SCH (07:58)
[2016-12-16] MEDS: SODIUM CHLORIDE 0.9% 1,000 ML IV SCH (07:59)
[2016-12-16 11:09] VITALS: BP 137/82; PULSE 76
--- NOTE | 2016-12-16 14:21 | P.DS ---
Providers Date of admission: 12/12/16 22:40 Attending physician: Adi Smith Consults: 12/12/16 22:39 Consult Physician Routine Consulting Provider: Jonah Srivastava Consult Reason/Comments: a TIA Do you want consulting provider notified?: Yes 12/14/16 11:28 Consult Physician Routine Consulting Provider: José Luis Phillip Consult Reason/Comments: eval for inpatient rehab Do you want consulting provider notified?: Yes Primary care physician: Adi Smith - Discharge Diagnosis(es) (1) Left-sided weakness Current Visit: Yes Status: Acute (2) Weakness on left side of face Current Visit: Yes Status: Acute (3) Smoking Current Visit: Yes Status: Acute (4) Transient cerebral ischemia Current Visit: Yes Status: Acute (5) Anxiety Current Visit: No Status: Acute Hospital Course: This 56-year-old white female essentially admitted for left-sided weakness. Computed tomography scan of the head and initial workup did not show conclusive evidence. However, And MRI did show right middle cerebral artery infarct. The patient was stabilized from a PT/OT perspective. She'll be transferred to inpatient rehab per physical medicine and rehab Dr. Phillip. Patient Condition at Discharge: Stable Plan - Discharge Summary Discharge Rx Participant: No New Discharge Prescriptions: New ALPRAZolam [Xanax] 1 mg PO TID PRN #90 tab PRN Reason: Anxiety Aspirin 325 mg PO DAILY tab Clopidogrel [Plavix] 75 mg PO DAILY #30 tab Famotidine [Pepcid] 20 mg PO HS #30 tab Continue Cyclobenzaprine [Flexeril] 10 mg PO TID ALPRAZolam [Xanax] 1 mg PO TID PRN PRN Reason: Anxiety HYDROcodone/APAP 10-325MG [[place] 10-325] 1 tab PO QID PRN #120 tab PRN Reason: Pain Discharge Medication List ALPRAZolam [Xanax] 1 mg PO TID PRN 01/05/15 [History] Cyclobenzaprine [Flexeril] 10 mg PO TID 01/05/15 [History] ALPRAZolam [Xanax] 1 mg PO TID PRN #90 tab 12/16/16 [Rx] Aspirin 325 mg PO DAILY tab 12/16/16 [Rx] Clopidogrel [Plavix] 75 mg PO DAILY #30 tab 12/16/16 [Rx] Famotidine [Pepcid] 20 mg PO HS #30 tab 12/16/16 [Rx] HYDROcodone/APAP 10-325MG [[place] 10-325] 1 tab PO QID PRN #120 tab 12/16/16 [Rx] Follow up Appointment(s)/Referral(s): Adi Smith MD [Primary Care Provider] - 1-2 days Activity/Diet/Wound Care/Special Instructions: ECF planned for discharge. Discharge Disposition: DC/TRNS INTERMEDIATE CARE FAC
--- NOTE | 2017-01-08 21:08 | EEG ---
ELECTROENCEPHALOGRAM REPORT DATE OF EE12/14/2016. REFERRING PHYSICIAN: Dr. Smith. INTERPRETING PHYSICIAN: Dr. Jonah Srivastava. INDICATION FOR EXAMINATION: This patient is a 56-year-old female being evaluated for TIA and facial weakness. AGE: 56. EEG FINDINGS: A routine 21-channel awake digital EEG recording was accomplished utilizing the 10-20 international system with bipolar and referential montages. The background activity in the most alert resting state consists of a low to medium amplitude, fairly well- developed and well-sustained 6-7 Hz activity over the posterior head regions. This posterior rhythm attenuates to eye opening. There is a small amount of low amplitude 18-20 Hz beta activity seen maximally over the anterior head regions. Muscle and movement artifact was observed on a few occasions during the tracing. Hyperventilation was not performed. Photic stimulation at flash frequencies of 2-30 Hz produced a minimal occipital driving response. No epileptiform discharges were seen. IMPRESSION: This EEG is mildly abnormal in a diffuse fashion due to the slight slowing of the EEG background. The EEG failed to reveal any focal, lateralized or epileptiform abnormalities. Clinical correlation is recommended. MMODL / IJN: [id number] /
== END 2016-12-16 15:05 | DRG 45 ==
LOC: EC 20:12 → 6SEL 22:40
PROVIDERS: ADMIT Family Medicine; ATTEND Family Medicine
DX: I63.511 Cerebral infarction due to unspecified occlusion or stenosis of right middle cerebral artery (principal); G81.94 Hemiplegia, unspecified affecting left nondominant side; R29.810 Facial weakness; R29.708 NIHSS score 8; J45.909 Unspecified asthma, uncomplicated; M79.7 Fibromyalgia; M19.011 Primary osteoarthritis, right shoulder; K21.9 Gastro-esophageal reflux disease without esophagitis; F41.9 Anxiety disorder, unspecified; M85.80 Other specified disorders of bone density and structure, unspecified site; F17.210 Nicotine dependence, cigarettes, uncomplicated; Z79.899 Other long term (current) drug therapy; Z90.710 Acquired absence of both cervix and uterus; Z90.49 Acquired absence of other specified parts of digestive tract; Z87.01 Personal history of pneumonia (recurrent); Z88.6 Allergy status to analgesic agent; Z91.041 Radiographic dye allergy status; Z82.3 Family history of stroke
CPT/HCPCS: 36415; 70450; 70496; 70498; 70551; 71020; 80053; 80061; 80306; 81001; 82550; 82553; 84484; 85025; 85027; 85610; 85730; 93005; 93306; 93880; 94760; 95819; 96374; 96375; 99291

== ENCOUNTER 2017-03-03 18:12 | Emergency (ER) | payer OTHER ==
[2017-03-03] MEDS ORDERED: ACETAMINOPHEN IV (For NPO) 1,000 MG in EMPTY BAG 1 BAG IVPB STA (18:15)
--- NOTE | 2017-03-03 18:17 | ED ---
General Adult HPI - General Stated complaint: Fall Time Seen by Provider: 03/03/17 18:15 Source: RN notes reviewed, old records reviewed - History of Present Illness Initial comments: This is a 56-year-old female to the ER for evaluation. Patient presents today for evaluation regarding fall. Fall occurred yesterday. Patient slipped on a stair. She slept to mechanical weakness from left side which is due to prior stroke. Patient complaining of back pain pulse ox pain neck pain. No loss of consciousness. - Related Data Home Medications Medication Instructions Recorded Confirmed ALPRAZolam [Xanax] 1 mg PO TID PRN 01/05/15 03/03/17 Cyclobenzaprine [Flexeril] 10 mg PO TID 01/05/15 03/03/17 Acetaminophen [Tylenol 8 Hour] 1,300 mg PO TID PRN 03/03/17 03/03/17 Atorvastatin [Lipitor] 20 mg PO HS 03/03/17 03/03/17 HYDROcodone/APAP 7.5-325MG [[place] 1 tab PO Q6HR PRN 03/03/17 03/03/17 7.5-325] Previous Rx's Medication Instructions Recorded Aspirin 325 mg PO DAILY tab 12/16/16 Clopidogrel [Plavix] 75 mg PO DAILY #30 tab 12/16/16 Famotidine [Pepcid] 20 mg PO HS #30 tab 12/16/16 Naproxen [Naprosyn] 500 mg PO Q12HR PRN #30 tab 03/03/17 Allergies Allergy/AdvReac Type Severity Reaction Status Date / Time Iodinated Contrast- Oral and Allergy Intermediate Anaphylaxis Verified 03/03/17 19:32 IV Dye aspirin Allergy Nausea & Verified 03/03/17 19:32 Vomiting Review of Systems ROS Statement: Those systems with pertinent positive or pertinent negative responses have been documented in the HPI. ROS Other: All systems not noted in ROS Statement are negative. 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 Lump on left post mandibular area, soft and movable has had for 2 years. History of Any Multi-Drug Resistant Organisms: None Reported Past Surgical History: Appendectomy, Cholecystectomy, Hysterectomy, Orthopedic Surgery, Tonsillectomy Additional Past Surgical History / Comment(s): right shoulder and left elbow Past Anesthesia/Blood Transfusion Reactions: Motion Sickness Additional Past Anesthesia/Blood Transfusion Reaction / Comment(s): nausea with anesthesia Past Psychological History: Anxiety Smoking Status: Current every day smoker Past Alcohol Use History: None Reported Past Drug Use History: None Reported - Past Family History Mother Family Medical History: Diabetes Mellitus Father Family Medical History: Cancer Additional Family Medical History / Comment(s): of bone cancer General Exam General appearance: alert, in no apparent distress Head exam: Present: atraumatic, normocephalic, normal inspection Eye exam: Present: normal appearance, PERRL, EOMI. Absent: scleral icterus, conjunctival injection, periorbital swelling ENT exam: Present: normal exam, mucous membranes moist Neck exam: Present: normal inspection. Absent: tenderness, meningismus, lymphadenopathy Respiratory exam: Present: normal lung sounds bilaterally. Absent: respiratory distress, wheezes, rales, rhonchi, stridor Cardiovascular Exam: Present: regular rate, normal rhythm, normal heart sounds. Absent: systolic murmur, diastolic murmur, rubs, gallop, clicks GI/Abdominal exam: Present: soft, normal bowel sounds. Absent: distended, tenderness, guarding, rebound, rigid Extremities exam: Present: normal inspection, full ROM, normal capillary refill. Absent: tenderness, pedal edema, joint swelling, calf tenderness Back exam: Present: normal inspection Neurological exam: Present: alert, oriented X3, CN II-XII intact Psychiatric exam: Present: normal affect, normal mood Skin exam: Present: warm, dry, intact, normal color. Absent: rash Course Vital Signs 03/03/17 03/03/17 18:14 22:17 Temperature 98.4 F Pulse Rate 104 H 95 Respiratory 16 18 Rate Blood Pressure 111/63 101/61 O2 Sat by Pulse 94 L 98 Oximetry - Reevaluation(s) Reevaluation #1: 03/03/17 18:16 Patient's pain is currently adequately controlled Reevaluation #2: 03/03/17 21:00 Family requesting patient or taking at home pain medication takes the patient is a threat to herself, wants psychiatric evaluation Medical Decision Making - Medical Decision Making 56 female to ER to be evaluated status post fall, tripping fall. Family concerned the patient is may be over taking pain medication or sedation medication at home, patient's awake alert currently denies any feelings of psychiatric or suicidal issues. Patient okay for discharge home - Radiology Data Radiology results: report reviewed (CT brain C-spine chest x-ray pelvis x-ray negative for traumatic injury), image reviewed Disposition Clinical Impression: Fall, Accidental overdose Disposition: HOME SELF-CARE Condition: Good Instructions: Benzodiazepine Abuse (ED), Fall Prevention for Older Adults (ED) , Benzodiazepine Overdose (ED) Prescriptions: Naproxen [Naprosyn] 500 mg PO Q12HR PRN #30 tab PRN Reason: Pain Referrals: Adi Smith MD [Primary Care Provider] - 1-2 days
[2017-03-03 18:19] VITALS: TEMP 98.4
--- NOTE | 2017-03-03 19:35 | CT ---
EXAMINATION TYPE: CT brain autumn wo con DATE OF EXAM: 03/03/2017 COMPARISON: 12/12/2016 HISTORY: Fall yesterday. CT DLP: 1404.8 mGycm Automated exposure control for dose reduction was used. TECHNIQUE: CT scan of the head and cervical spine are performed without contrast. FINDINGS: There is no acute intracranial hemorrhage, mass effect, or midline shift identified. The ventricles and sulci are within normal limits in size. The globes are intact and the visualized sin uses are clear. Cervical spine is visualized in its entirety from C1 through upper thoracic levels and demonstrates s atisfactory alignment without evidence of acute fracture or dislocation. Prevertebral soft tissue ap pears within normal limits. The C1-C2 articulation is unremarkable. IMPRESSION: 1. There is no acute fracture or dislocation evident in the cervical spine. 2. No acute intracranial hemorrhage, mass effect, or midline shift is seen.
--- NOTE | 2017-03-03 19:51 | XR ---
PROCEDURE: XR pelvis AP view DATE AND TIME: 03/03/2017 7:46 PM REFERRING PHYSICIAN: Quincy Blank DO CLINICAL INDICATION: PHH, Pain TECHNIQUE: Department protocol. COMPARISON: None FINDINGS: There is no fracture or malalignment. The soft tissues are unremarkable. IMPRESSION: NO ACUTE PROCESS.
--- NOTE | 2017-03-03 19:53 | XR ---
EXAMINATION: XR chest 1V DATE AND TIME: 03/03/2017 7:46 PM ORDERING PROVIDER: Quincy Blank DO CLINICAL INDICATION: Pain TECHNIQUE: AP upright portable COMPARISON: 12/12/2016 DESCRIPTION: The lungs are clear. The pleural spaces are negative. The cardiac silhouette is not enlarged. The mediastinal and pleural silhouettes are unremarkable. The skeletal structures are intact without focal findings. The soft tissues are unremarkable. IMPRESSION: NO ACUTE PROCESS.
[2017-03-03] MEDS ORDERED: KETOROLAC 30 MG/ML 1 ML VIAL IVP STA (21:15)
[2017-03-03 22:19] VITALS: BP 101/61; PULSE 95; RESP 18
== END 2017-03-03 22:17 | disposition home or self-care (01) ==
LOC: EC 18:12
DX: T50.991A Poisoning by other drugs, medicaments and biological substances, accidental (unintentional), initial encounter (principal); M54.9 Dorsalgia, unspecified; M54.2 Cervicalgia; I69.898 Other sequelae of other cerebrovascular disease; R53.1 Weakness; M79.7 Fibromyalgia; F17.200 Nicotine dependence, unspecified, uncomplicated; Z85.89 Personal history of malignant neoplasm of other organs and systems; Z88.6 Allergy status to analgesic agent; Z91.041 Radiographic dye allergy status; Z79.899 Other long term (current) drug therapy; W10.9XXA Fall (on) (from) unspecified stairs and steps, initial encounter
CPT/HCPCS: 82075; 72170; 71045; 72125; 70450; 99285; 96374; 96375; J1885; J0131

== ENCOUNTER 2017-03-08 13:25 | Emergency (ER) | payer OTHER ==
[2017-03-08 13:30] VITALS: RESP 18
--- NOTE | 2017-03-08 13:55 | ED ---
General Adult HPI - General Chief complaint: Psychiatric Symptoms Stated complaint: Mental Health Time Seen by Provider: 03/08/17 13:43 Source: patient, police, RN notes reviewed Mode of arrival: ambulatory Limitations: physical limitation - History of Present Illness Initial comments: Patient 56-year-old female who presents emergency room today with a chief complaint of needing psychiatric evaluation. Patient does admit that she was seen in the hospital approximately one week ago. She states she accidentally overdosed on Xanax. She states she had a stroke back in December. She states that she took her Xanax and forgot that she had taken it took another dose. She states she was brought to the hospital was seen by psych services at that time. States she was picked up by the police today for another psychiatric evaluation because her daughter's concerned about her. She states she lives with her son. She states that she got into an argument there at home. She states this all happened last week. She states she saw psych at that time and was cleared. She states she has both also herself or others. She denies any other complaints or symptoms. Patient denies any recent fever, chills, shortness of breath, chest pain, back pain, abdominal pain, nausea or vomiting, numbness or tingling, headaches or visual changes, or any other complaints. - Related Data Home Medications Medication Instructions Recorded Confirmed ALPRAZolam [Xanax] 1 mg PO TID PRN 01/05/15 03/08/17 Cyclobenzaprine [Flexeril] 10 mg PO TID 01/05/15 03/08/17 Acetaminophen [Tylenol 8 Hour] 1,300 mg PO TID PRN 03/03/17 03/08/17 Atorvastatin [Lipitor] 20 mg PO HS 03/03/17 03/08/17 HYDROcodone/APAP 7.5-325MG [[place] 1 tab PO Q6HR PRN 03/03/17 03/08/17 7.5-325] Previous Rx's Medication Instructions Recorded Aspirin 325 mg PO DAILY tab 12/16/16 Clopidogrel [Plavix] 75 mg PO DAILY #30 tab 12/16/16 Famotidine [Pepcid] 20 mg PO HS #30 tab 12/16/16 Naproxen [Naprosyn] 500 mg PO Q12HR PRN #30 tab 03/03/17 Allergies Allergy/AdvReac Type Severity Reaction Status Date / Time Iodinated Contrast- Oral and Allergy Intermediate Anaphylaxis Verified 03/08/17 14:19 IV Dye aspirin Allergy Nausea & Verified 03/08/17 14:19 Vomiting/SHORTNESS OF BREATH Review of Systems ROS Statement: Those systems with pertinent positive or pertinent negative responses have been documented in the HPI. ROS Other: All systems not noted in ROS Statement are negative. 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 Lump on left post mandibular area, soft and movable has had for 2 years. History of Any Multi-Drug Resistant Organisms: None Reported Past Surgical History: Appendectomy, Cholecystectomy, Hysterectomy, Orthopedic Surgery, Tonsillectomy Additional Past Surgical History / Comment(s): right shoulder and left elbow Past Anesthesia/Blood Transfusion Reactions: Motion Sickness Additional Past Anesthesia/Blood Transfusion Reaction / Comment(s): nausea with anesthesia Past Psychological History: Anxiety Smoking Status: Current every day smoker Past Alcohol Use History: None Reported Past Drug Use History: None Reported - Past Family History Mother Family Medical History: Diabetes Mellitus Father Family Medical History: Cancer Additional Family Medical History / Comment(s): of bone cancer General Exam - General Exam Comments Initial Comments: General: The patient is awake and alert, in no distress, and does not appear acutely ill. Eye: Pupils are equal, round and reactive to light, extra-ocular movements are intact. No nystagmus. There is normal conjunctiva bilaterally. No signs of icterus. Ears, nose, mouth and throat: There are moist mucous membranes and no oral lesions. Neck: The neck is supple, there is no tenderness or JVD. Cardiovascular: There is a regular rate and rhythm. No murmur, rub or gallop is appreciated. Respiratory: Lungs are clear to auscultation, respirations are non-labored, breath sounds are equal. No wheezes, stridor, rales, or rhonchi. Musculoskeletal: Normal ROM, no tenderness. Strength 5/5. Sensation intact. Pulses equal bilaterally 2+. Neurological: A&O x 3. CN II-XII intact, There are no obvious motor or sensory deficits. Coordination appears grossly intact. Speech is normal. Skin: Skin is warm and dry and no rashes or lesions are noted. Psychiatric: Cooperative. Limitations: physical limitation Course Vital Signs 03/08/17 03/08/17 13:26 14:05 Temperature 97.8 F Pulse Rate 139 H 129 H Respiratory 18 Rate Blood Pressure 129/76 179/87 O2 Sat by Pulse 97 94 L Oximetry Medical Decision Making - Medical Decision Making Patient reexamined here in the emergency room show no signs of distress, talking on cellphone. Patient was seen by mental health. They recommend the patient may be discharged home. Patient will be discharged advised follow-up with mental health outpatient. She is advised return here to the emergency room for any symptoms increase worsen or for any other concerns. - Lab Data Lab Results 03/08/17 Range/Units 14:00 Urine Opiates Screen Not Detected (NotDetected) Ur Oxycodone Screen Not Detected (NotDetected) Urine Methadone Screen Not Detected (NotDetected) Ur Propoxyphene Screen Not Detected (NotDetected) Ur Barbiturates Screen Not Detected (NotDetected) U Tricyclic Antidepress Not Detected (NotDetected) Ur Phencyclidine Scrn Not Detected (NotDetected) Ur Amphetamines Screen Not Detected (NotDetected) U Methamphetamines Scrn Not Detected (NotDetected) U Benzodiazepines Scrn Not Detected (NotDetected) Urine Cocaine Screen Not Detected (NotDetected) U Marijuana (THC) Screen Not Detected (NotDetected) Disposition Clinical Impression: Evaluation by psychiatric service required Disposition: HOME SELF-CARE Condition: Good Additional Instructions: Please follow-up with family doctor in the next 2 days and mental health as discussed here in emergency room. Please return to emergency room if the symptoms increase or worsen or for any other concerns. Referrals: Adi Smith MD [Primary Care Provider] - 1-2 days Time of Disposition: 16:37
[2017-03-08 14:55] LABS: Amphetamine Screen,Urine Not Detected (NotDetected); Barbiturate Screen,Urine Not Detected (NotDetected); Benzodiazepines Screen,Urine Not Detected (NotDetected); Cocaine Screen,Urine Not Detected (NotDetected); Methadone Screen, Urine Not Detected (NotDetected); Opiate Screen,Urine Not Detected (NotDetected); Oxycodone Screen, Urine Not Detected (NotDetected); Phencyclidine Screen,Urine Not Detected (NotDetected); Tricyclic Antidepressant,Urine Not Detected (NotDetected); Urn Cannabinoid Scrn Not Detected (NotDetected)
[2017-03-08 17:12] VITALS: BP 138/56; PULSE 101; TEMP 98.6
== END 2017-03-08 17:12 | disposition home or self-care (01) ==
LOC: EC 13:25
DX: Z00.8 Encounter for other general examination (principal); M79.7 Fibromyalgia; F17.200 Nicotine dependence, unspecified, uncomplicated; Z85.41 Personal history of malignant neoplasm of cervix uteri; Z79.899 Other long term (current) drug therapy; Z88.6 Allergy status to analgesic agent; Z91.041 Radiographic dye allergy status
CPT/HCPCS: 80306; 82075; 99284

== ENCOUNTER 2018-09-27 00:17 | Emergency (ER) | payer OTHER ==
--- NOTE | 2018-09-27 01:18 | XR ---
EXAM: XR Right Shoulder Complete, 2 or More Views CLINICAL HISTORY: ITS.REASON XR Reason: Pain TECHNIQUE: Two or more views of the right shoulder. COMPARISON: No relevant prior studies available. FINDINGS: Bones/joints: Question chronic osteolysis or bone loss at the distal clavicle with associated widening of the acromioclavicular interval. No acute fracture. No dislocation. Soft tissues: Unremarkable. IMPRESSION: No acute or healing fracture or malalignment..
[2018-09-27] MEDS ORDERED: KETOROLAC 30 MG/ML 1 ML VIAL IM STA (01:52)
[2018-09-27] MEDS ORDERED: HYDROcodone/APAP 5-325MG 1 EACH TAB PO STA (01:52)
[2018-09-27] MEDS ORDERED: DIAZEPAM 5 MG/ML 2 ML INJ IM ONE (01:52)
[2018-09-27] MEDS ORDERED: ACET/COD 300 MG/30 MG STARTER PACK 6 TAB BTL PO STA (01:55)
--- NOTE | 2018-09-27 01:55 | ED ---
Upper Extremity HPI - General Chief Complaint: Extremity Injury, Upper Stated Complaint: Shoulder and neck injury Time Seen by Provider: 09/27/18 01:16 Source: patient Mode of arrival: ambulatory Limitations: no limitations - History of Present Illness Initial Comments: 58-year-old female patient presents to the emergency department today for evaluation of right shoulder injury. Patient states she was in her room was cleaning when a television started to fall from the stand. Patient states she put her right arm try to catch it and it wrenched in for the muscles in her right shoulder. Patient states this occurred around 5 PM this afternoon. Patient states she's been having significant pain since. Denies taking any medication for her symptoms. Patient denies any pain radiation down the arm. Denies any numbness or tingling to the arm. Patient does have history of injury to the shoulder has had surgery in the past. Patient denies any headache, back pain, chest pain, shortness of breath, dizziness, weakness, abdominal pain, nausea, vomiting, or difficulties with bowel movements or urination. - Related Data Home Medications Medication Instructions Recorded Confirmed ALPRAZolam [Xanax] 1 mg PO TID PRN 01/05/15 03/08/17 Cyclobenzaprine [Flexeril] 10 mg PO TID 01/05/15 03/08/17 Acetaminophen [Tylenol 8 Hour] 1,300 mg PO TID PRN 03/03/17 03/08/17 Atorvastatin [Lipitor] 20 mg PO HS 03/03/17 03/08/17 HYDROcodone/APAP 7.5-325MG [[place] 1 tab PO Q6HR PRN 03/03/17 03/08/17 7.5-325] Previous Rx's Medication Instructions Recorded Aspirin 325 mg PO DAILY tab 12/16/16 Clopidogrel [Plavix] 75 mg PO DAILY #30 tab 12/16/16 Famotidine [Pepcid] 20 mg PO HS #30 tab 12/16/16 Naproxen [Naprosyn] 500 mg PO Q12HR PRN #30 tab 03/03/17 Diazepam [Valium] 5 mg PO TID PRN 3 Days #9 tab 09/27/18 Ibuprofen [Motrin] 600 mg PO Q8HR PRN #30 tab 09/27/18 Allergies Allergy/AdvReac Type Severity Reaction Status Date / Time Iodinated Contrast- Oral and Allergy Intermediate Anaphylaxis Verified 03/08/17 14:19 IV Dye aspirin Allergy Nausea & Verified 03/08/17 14:19 Vomiting/SHORTNESS OF BREATH Review of Systems ROS Statement: Those systems with pertinent positive or pertinent negative responses have been documented in the HPI. ROS Other: All systems not noted in ROS Statement are negative. 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 Lump on left post mandibular area, soft and movable has had for 2 years. History of Any Multi-Drug Resistant Organisms: None Reported Past Surgical History: Appendectomy, Cholecystectomy, Hysterectomy, Orthopedic Surgery, Tonsillectomy Additional Past Surgical History / Comment(s): right shoulder and left elbow Past Anesthesia/Blood Transfusion Reactions: Motion Sickness Additional Past Anesthesia/Blood Transfusion Reaction / Comment(s): nausea with anesthesia Past Psychological History: Anxiety Smoking Status: Current every day smoker Past Alcohol Use History: None Reported Past Drug Use History: None Reported - Past Family History Mother Family Medical History: Diabetes Mellitus Father Family Medical History: Cancer Additional Family Medical History / Comment(s): of bone cancer General Exam Limitations: no limitations General appearance: alert, in no apparent distress, other (This is a well- developed, well-nourished adult female patient in mild distress related to pain. Vital signs upon presentation are temperature 97.3F, pulse 100, respirations 20, blood pressure 155/95, pulse ox 99% on room air.) Eye exam: Present: normal appearance, PERRL, EOMI. Absent: scleral icterus, conjunctival injection, periorbital swelling ENT exam: Present: normal exam, normal oropharynx, mucous membranes moist Respiratory exam: Present: normal lung sounds bilaterally. Absent: respiratory distress, wheezes, rales, rhonchi, stridor Cardiovascular Exam: Present: regular rate, normal rhythm, normal heart sounds. Absent: systolic murmur, diastolic murmur, rubs, gallop, clicks Extremities exam: Present: full ROM, tenderness (Right shoulder and upper trapezius muscle), normal capillary refill, other (Skin to the right arm is pink, warm, dry. Cap refills less than 3 seconds. Radial pulses 2+ and equal bilaterally. Patient exhibits abduction at approximately 20%, forward flexion at approximately 10% and extension of approximately 20%.). Absent: normal inspection, pedal edema, joint swelling, calf tenderness Back exam: Present: normal inspection. Absent: vertebral tenderness Neurological exam: Present: alert, oriented X3, CN II-XII intact Psychiatric exam: Present: normal affect, normal mood Skin exam: Present: warm, dry, intact, normal color. Absent: rash Course Vital Signs 09/27/18 00:34 Temperature 97.3 F L Pulse Rate 100 Respiratory 20 Rate Blood Pressure 155/95 O2 Sat by Pulse 99 Oximetry Medical Decision Making - Medical Decision Making 58-year-old female patient presents to the emergency department today for evaluation of right shoulder pain. Physical examination did reveal decreased range of motion due to increased pain with movement. Neurovascular status was intact. X-ray of the right shoulder was negative for any acute abnormalities. Patient symptoms are consistent with muscular strain or tear most likely rotator cuff. She'll be placed in a sling. She is given exposed instructions to perform range of motion several times per day while in the sling. She is instructed to follow-up with the exhibit specialist for further evaluation as soon as possible just instructed to follow-up with her primary care physician for recheck in 1-2 days. Return parameters were discussed in detail. She verbalizes understanding and agrees with this plan. - Radiology Data Radiology results: report reviewed, image reviewed 2 views of the right shoulder obtained. Report is reviewed in its entirety. Impression by Dr. Feliz shows no acute or healing fracture or malalignment. Disposition Clinical Impression: Injury of right rotator cuff Disposition: HOME SELF-CARE Condition: Good Instructions (If sedation given, give patient instructions): Rotator Cuff Injury (ED) Additional Instructions: Apply ice to the right shoulder for the first 24 hours and then switch to warm moist heat. Take medications as directed. Follow-up with orthopedics for recheck as soon as possible. Follow-up with your primary care physician for recheck in 1-2 days. Return to the emergency department immediately for any new, worsening, or concerning symptoms Prescriptions: Ibuprofen [Motrin] 600 mg PO Q8HR PRN #30 tab PRN Reason: Pain Diazepam [Valium] 5 mg PO TID PRN 3 Days #9 tab PRN Reason: Muscle Spasm Is patient prescribed a controlled substance at d/c from ED?: Yes When asked, does pt state using other controlled substances?: No If prescribed controlled substance>3 days was MAPS reviewed?: Prescribed <3 Days Referrals: dAi Smith MD [Primary Care Provider] - 1-2 days Cortez Doe MD [STAFF PHYSICIAN] - 1-2 days Time of Disposition: 01:54
[2018-09-27 02:19] VITALS: BP 136/70; PULSE 82; RESP 18; TEMP 97.6
== END 2018-09-27 02:19 | disposition home or self-care (01) ==
LOC: EC 00:17
DX: S46.001A Unspecified injury of muscle(s) and tendon(s) of the rotator cuff of right shoulder, initial encounter (principal); F17.200 Nicotine dependence, unspecified, uncomplicated; Z88.6 Allergy status to analgesic agent; Z91.041 Radiographic dye allergy status; Z79.899 Other long term (current) drug therapy; Z86.73 Personal history of transient ischemic attack (TIA), and cerebral infarction without residual deficits; Z85.41 Personal history of malignant neoplasm of cervix uteri; Z90.710 Acquired absence of both cervix and uterus; X50.9XXA Other and unspecified overexertion or strenuous movements or postures, initial encounter; Y93.E9 Activity, other interior property and clothing maintenance; Y92.008 Other place in unspecified non-institutional (private) residence as the place of occurrence of the external cause
CPT/HCPCS: 73030; 99283; 96372 ×2; J3360; J1885

== ENCOUNTER 2018-10-28 17:59 | Emergency (ER) | payer OTHER ==
[2018-10-28 18:19] VITALS: BP 137/88; PULSE 107; RESP 20; TEMP 98.8
[2018-10-28] MEDS ORDERED: DEXAMETHASONE 4 MG TAB PO STA (18:58)
[2018-10-28] MEDS ORDERED: MORPHINE SULFATE 4 MG/ML SYRINGE IM STA (18:58)
[2018-10-28] MEDS ORDERED: diphenhydrAMINE 50 MG/ML 1 ML VIAL IM STA (19:00)
--- NOTE | 2018-10-28 19:02 | ED ---
General Adult HPI - General Chief complaint: Skin/Abscess/Foreign Body Stated complaint: Painful rash Time Seen by Provider: 10/28/18 18:22 Source: patient Mode of arrival: ambulatory Limitations: no limitations - History of Present Illness Initial comments: Dictation was produced using [employer] dictation software. please excuse any gram matical, word or spelling errors. Chief Complaint: 58-year-old female presents with diffuse body rash for 1 week. History of Present Illness: [id number] female presents with diffuse body rash 1 week. Patient states that her symptoms got so bad today that she wanted to come to the emergency department. Patient states she's been having itchy rash that covers face neck chest back legs glue thighs and arms. Patient did recently change or so. She denies starting any new medications. Patient does not have any food ALLERGIES. Patient denies any chest pain shortness of breath. No abdominal pain. The ROS documented in this emergency department record has been reviewed and confirmed by me. Those systems with pertinent positive or negative responses have been documented in the HPI. All other systems are other negative and/or noncontributory. PHYSICAL EXAM: General Impression: Alert and oriented x3, not in acute distress HEENT: Normocephalic atraumatic, extra-ocular movements intact, pupils equal and reactive to light bilaterally, mucous membranes moist, conjunctiva mucous membranes Cardiovascular: Heart regular rate and rhythm, S1&S2 audible, no murmurs, rubs o r gallops Chest: Lungs clear to auscultation bilaterally, no rhonchi, no wheeze, no rales Abdomen: Bowel sounds present, abdomen soft, non-tender, non-distended, no organomegaly Musculoskeletal: Pulses present and equal in all extremities, no peripheral edema Motor: no focal deficits noted Neurological: CN II-XII grossly intact, no focal motor or sensory deficits noted Skin: Diffuse urticarial rash. Not affecting palms and soles or oral mucosa Psych: Normal affect and mood ED course: 58-year-old female presents with diffuse body rash. This is likely secondary to contact dermatitis. Ends upon arrival shows heart rate of 107. Patient appears itchy. No concern for life-threatening rash given that it does not affect palms, soles or his membranes. She also has stable vital signs. Patient given IM morphine, by mouth Decadron and IM diphenhydramine. She is given prescription for Atarax. Patient was provided with a sling for her right upper extremity. She states she recently toward her right shoulder rotator cuff. She has arrangements to have her shoulder repaired. Told to change her laundry detergent. She also told to keep a diary of what types of exposure she's had recently. Patient otherwise advised to follow-up with primary care physician upon discharge. - Related Data Home Medications Medication Instructions Recorded Confirmed ALPRAZolam [Xanax] 1 mg PO DAILY PRN 01/05/15 10/28/18 Cyclobenzaprine [Flexeril] 10 mg PO TID 01/05/15 10/28/18 Atorvastatin [Lipitor] 20 mg PO HS 03/03/17 10/28/18 HYDROcodone/APAP 5-325MG [[place] 1 tab PO DAILY PRN 10/28/18 10/28/18 5-325] Previous Rx's Medication Instructions Recorded Clopidogrel [Plavix] 75 mg PO DAILY #30 tab 12/16/16 Famotidine [Pepcid] 20 mg PO HS #30 tab 12/16/16 hydrOXYzine HCL [Atarax] 25 mg PO TID PRN #12 tab 10/28/18 Allergies Allergy/AdvReac Type Severity Reaction Status Date / Time Iodinated Contrast- Oral and Allergy Intermediate Anaphylaxis Verified 10/28/18 18:40 IV Dye aspirin Allergy Nausea & Verified 10/28/18 18:40 Vomiting/SHORTNESS OF BREATH Review of Systems ROS Statement: Those systems with pertinent positive or pertinent negative responses have been documented in the HPI. ROS Other: All systems not noted in ROS Statement are negative. 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 Lump on left post mandibular area, soft and movable has had for 2 years. History of Any Multi-Drug Resistant Organisms: None Reported Past Surgical History: Appendectomy, Cholecystectomy, Hysterectomy, Orthopedic Surgery, Tonsillectomy Additional Past Surgical History / Comment(s): right shoulder and left elbow Past Anesthesia/Blood Transfusion Reactions: Motion Sickness Additional Past Anesthesia/Blood Transfusion Reaction / Comment(s): nausea with anesthesia Past Psychological History: Anxiety Smoking Status: Current every day smoker Past Alcohol Use History: None Reported Past Drug Use History: None Reported - Past Family History Mother Family Medical History: Diabetes Mellitus Father Family Medical History: Cancer Additional Family Medical History / Comment(s): of bone cancer General Exam Limitations: no limitations Course Vital Signs 10/28/18 18:18 Temperature 98.8 F Pulse Rate 107 H Respiratory 20 Rate Blood Pressure 137/88 O2 Sat by Pulse 96 Oximetry Disposition Clinical Impression: Contact dermatitis Disposition: HOME SELF-CARE Condition: Good Instructions (If sedation given, give patient instructions): Acute Rash (ED) Prescriptions: hydrOXYzine HCL [Atarax] 25 mg PO TID PRN #12 tab PRN Reason: Itching Is patient prescribed a controlled substance at d/c from ED?: No Referrals: Adi Smith MD [Primary Care Provider] - 1-2 days Time of Disposition: 19:02
== END 2018-10-28 19:18 | disposition home or self-care (01) ==
LOC: EC 17:59
DX: L25.9 Unspecified contact dermatitis, unspecified cause (principal); F41.9 Anxiety disorder, unspecified; F17.200 Nicotine dependence, unspecified, uncomplicated; Z90.49 Acquired absence of other specified parts of digestive tract; Z90.710 Acquired absence of both cervix and uterus; Z86.73 Personal history of transient ischemic attack (TIA), and cerebral infarction without residual deficits; Z87.01 Personal history of pneumonia (recurrent); Z85.9 Personal history of malignant neoplasm, unspecified; Z79.899 Other long term (current) drug therapy; Z88.6 Allergy status to analgesic agent; Z91.041 Radiographic dye allergy status
CPT/HCPCS: 99283; 96372 ×2; J8540; J2270; J1200

== ENCOUNTER 2018-11-03 17:21 | Emergency (ER) | payer OTHER ==
[2018-11-03] MEDS ORDERED: KETOROLAC 30 MG/ML 1 ML VIAL IM STA (18:40)
[2018-11-03] MEDS ORDERED: methylPREDNISolone SOD SUCCI 125 MG/2 ML VIAL IM ONE (18:41)
[2018-11-03] MEDS ORDERED: diphenhydrAMINE 50 MG CAP PO STA (18:41)
--- NOTE | 2018-11-03 19:32 | ED ---
General Adult HPI - General Chief complaint: Skin/Abscess/Foreign Body Stated complaint: allergic reaction Time Seen by Provider: 11/03/18 17:42 Source: patient, RN notes reviewed Mode of arrival: ambulatory Limitations: no limitations - History of Present Illness Initial comments: 58-year-old female with a past medical history of asthma, CVA, fibromyalgia, GERD, pneumonia presents to the emergency department for rash. Patient has had a generalized rash on the arms abdomen back and legs for about 3 weeks. States it is painful and itchy. States the itching worsens at night. States she was seen here about a week ago and given steroids which did help for a few days but then it returned worse. Denies any new detergents. Denies any new soaps.Marco arhculeta has no other complaints at this time including shortness of breath, chest pain, abdominal pain, nausea or vomiting, headache, or visual changes. - Related Data Home Medications Medication Instructions Recorded Confirmed ALPRAZolam [Xanax] 1 mg PO DAILY PRN 01/05/15 10/28/18 Cyclobenzaprine [Flexeril] 10 mg PO TID 01/05/15 10/28/18 Atorvastatin [Lipitor] 20 mg PO HS 03/03/17 10/28/18 HYDROcodone/APAP 5-325MG [[place] 1 tab PO DAILY PRN 10/28/18 10/28/18 5-325] Previous Rx's Medication Instructions Recorded Clopidogrel [Plavix] 75 mg PO DAILY #30 tab 12/16/16 Famotidine [Pepcid] 20 mg PO HS #30 tab 12/16/16 hydrOXYzine HCL [Atarax] 25 mg PO TID PRN #12 tab 10/28/18 Permethrin 5% Cream [Elimite] 1 applic TOPICAL ONCE #1 tube 11/03/18 predniSONE 50 mg PO DAILY #5 tablet 11/03/18 Allergies Allergy/AdvReac Type Severity Reaction Status Date / Time Iodinated Contrast Media Allergy Intermediate Anaphylaxis Verified 11/03/18 17:35 aspirin Allergy Nausea & Verified 11/03/18 17:35 Vomiting/SHORTNESS OF BREATH Review of Systems ROS Statement: Those systems with pertinent positive or pertinent negative responses have been documented in the HPI. ROS Other: All systems not noted in ROS Statement are negative. 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 Lump on left post mandibular area, soft and movable has had for 2 years. History of Any Multi-Drug Resistant Organisms: None Reported Past Surgical History: Appendectomy, Cholecystectomy, Hysterectomy, Orthopedic Surgery, Tonsillectomy Additional Past Surgical History / Comment(s): right shoulder and left elbow Past Anesthesia/Blood Transfusion Reactions: Motion Sickness Additional Past Anesthesia/Blood Transfusion Reaction / Comment(s): nausea with anesthesia Past Psychological History: Anxiety Smoking Status: Current every day smoker Past Alcohol Use History: None Reported Past Drug Use History: None Reported - Past Family History Mother Family Medical History: Diabetes Mellitus Father Family Medical History: Cancer Additional Family Medical History / Comment(s): of bone cancer General Exam Limitations: no limitations General appearance: alert, in no apparent distress Head exam: Present: atraumatic, normocephalic, normal inspection Eye exam: Present: normal appearance, PERRL, EOMI. Absent: scleral icterus, conjunctival injection, periorbital swelling ENT exam: Present: normal exam, mucous membranes moist Neck exam: Present: normal inspection, full ROM. Absent: tenderness, meningismus, lymphadenopathy Respiratory exam: Present: normal lung sounds bilaterally. Absent: respiratory distress, wheezes, rales, rhonchi, stridor Cardiovascular Exam: Present: regular rate, normal rhythm, normal heart sounds. Absent: systolic murmur, diastolic murmur, rubs, gallop, clicks Skin exam: Present: other (Small Erythematous pruritic macular lesions generalized on the trunk as well as arms and legs. Excoriations noted. No suprainfection) Course Vital Signs 11/03/18 17:33 Temperature 97.6 F Pulse Rate 99 Respiratory 18 Rate Blood Pressure 136/81 O2 Sat by Pulse 98 Oximetry Medical Decision Making - Medical Decision Making 58-year-old female presents for rash 3 weeks. This is pruritic and worse at night. Rash is macular in nature and generalized on the trunk and extremities. Negative Nikolsky sign. No lesions on the palms or soles. No mucous membrane lesions. Patient was invited by Dr Blank as well. This time we believe this to be scabies. Patient will be treated with permethrin cream as well as steroid. She'll follow up with primary care or dermatology in 1-2 days. She'll return if she has any worsening symptoms. Disposition Clinical Impression: Rash, Scabies Disposition: HOME SELF-CARE Condition: Good Instructions (If sedation given, give patient instructions): Scabies (ED), Acute Rash (ED) Additional Instructions: Please take steroid as directed. Use lotion as directed. Follow up with primary care or dermatology in 1-2 days. Return to the emergency department if you have any worsening symptoms. Prescriptions: Permethrin 5% Cream [Elimite] 1 applic TOPICAL ONCE #1 tube predniSONE 50 mg PO DAILY #5 tablet Is patient prescribed a controlled substance at d/c from ED?: No Referrals: Adi Smith MD [Primary Care Provider] - 1-2 days Apolonia Jha MD [STAFF PHYSICIAN] - 1-2 days Time of Disposition: 19:29
[2018-11-03 19:51] VITALS: RESP 16
[2018-11-03 20:07] VITALS: BP 121/82; PULSE 66; TEMP 98.3
== END 2018-11-03 20:00 | disposition home or self-care (01) ==
LOC: EC 17:21
DX: B86 Scabies (principal); F17.200 Nicotine dependence, unspecified, uncomplicated; Z88.6 Allergy status to analgesic agent; Z91.041 Radiographic dye allergy status; Z79.899 Other long term (current) drug therapy; Z85.9 Personal history of malignant neoplasm, unspecified; Z90.710 Acquired absence of both cervix and uterus
CPT/HCPCS: 99283; 96372 ×2; J2930; J1885

== ENCOUNTER 2020-07-23 15:36 | Emergency (ER) | payer MEDICARE, OTHER ==
[2020-07-23 15:47] VITALS: RESP 18; TEMP 98.4
[2020-07-23] MEDS ORDERED: MORPHINE SULFATE 4 MG/ML SYRINGE IV STA (17:18)
[2020-07-23] MEDS ORDERED: SODIUM CHLORIDE 0.9% 500 ML 500 ML IV STA (17:18)
[2020-07-23] MEDS ORDERED: ORPHENADRINE 30 MG/ML 2 ML VIAL IM STA (17:18)
--- NOTE | 2020-07-23 17:29 | ED ---
Neck Injury/Pain HPI - General Chief Complaint: Neck Pain/Injury Stated Complaint: Neck pain Source: patient, RN notes reviewed Mode of arrival: EMS Limitations: no limitations - History of Present Illness Initial Comments: 60-year-old white female, alert and oriented 4, presents with complaints of awakening at 645 this morning with left-sided neck pain. Patient denies any tr auma she states that she May be CSF Monday on the pillow has never had this type of pain before. Patient is 9 out of 10 and excruciating and sharp. Patient was given 15 mg of Toradol IV by EMS and 500 mL bolus. Patient states she did not get any relief from the pain. Patient complains of pain with movement of the head left and right but denies C-spine tenderness. Patient does have a cyst located on the left side of the neck that she's had for years and they do want to remove it because she states it is getting bigger. Patient has a history of asthma, CVA, fibromyalgia, pneumonia, GERD. She has a surgical history of an appendectomy, cholecystectomy, hysterectomy, right shoulder surgery and left elbow surgery. Patient is a 1 pack-a-day smoker denies alcohol use. Patient states that she had a punch biopsy of a mole on her left hip last Monday without any complications but has not gotten the biopsy results yet. MD Complaint: neck pain -: hour(s) (10) Place: home Radiation: left lateral Severity scale (1-10): 9 Quality: sharp Consistency: constant Improves With: none Worsens With: none, movement of neck Context: other (Awoke with left-sided neck pain) Associated Symptoms: none Treatments Prior to Arrival: other (ems gave toradol ) - Related Data Home Medications Medication Instructions Recorded Confirmed ALPRAZolam [Xanax] 1 mg PO DAILY PRN 01/05/15 10/28/18 Cyclobenzaprine [Flexeril] 10 mg PO TID 01/05/15 10/28/18 Atorvastatin [Lipitor] 20 mg PO HS 03/03/17 10/28/18 HYDROcodone/APAP 5-325MG [[place] 1 tab PO DAILY PRN 10/28/18 10/28/18 5-325] Previous Rx's Medication Instructions Recorded Clopidogrel [Plavix] 75 mg PO DAILY #30 tab 12/16/16 Famotidine [Pepcid] 20 mg PO HS #30 tab 12/16/16 hydrOXYzine HCL [Atarax] 25 mg PO TID PRN #12 tab 10/28/18 Permethrin 5% Cream [Elimite] 1 applic TOPICAL ONCE #1 tube 11/03/18 predniSONE 50 mg PO DAILY #5 tablet 11/03/18 Cyclobenzaprine [Flexeril] 5 mg PO TID PRN #15 tablet 07/23/20 Allergies Allergy/AdvReac Type Severity Reaction Status Date / Time Iodinated Contrast Media Allergy Intermediate Anaphylaxis Verified 07/23/20 15:47 aspirin Allergy Nausea & Verified 07/23/20 15:47 Vomiting/SHORTNESS OF BREATH Review of Systems ROS Statement: Those systems with pertinent positive or pertinent negative responses have been documented in the HPI. ROS Other: All systems not noted in ROS Statement are negative. 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 Lump on left post mandibular area, soft and movable has had for 2 years. History of Any Multi-Drug Resistant Organisms: None Reported Past Surgical History: Appendectomy, Cholecystectomy, Hysterectomy, Orthopedic Surgery, Tonsillectomy Additional Past Surgical History / Comment(s): right shoulder and left elbow Past Anesthesia/Blood Transfusion Reactions: Motion Sickness Additional Past Anesthesia/Blood Transfusion Reaction / Comment(s): nausea with anesthesia Past Psychological History: Anxiety Past Alcohol Use History: None Reported Past Drug Use History: None Reported - Past Family History Mother Family Medical History: Diabetes Mellitus Father Family Medical History: Cancer Additional Family Medical History / Comment(s): of bone cancer General Exam Limitations: no limitations General appearance: alert, in no apparent distress Head exam: Present: atraumatic, normocephalic, normal inspection Eye exam: Present: normal appearance, PERRL, EOMI. Absent: scleral icterus, conjunctival injection, nystagmus, periorbital swelling Pupils: Present: normal accommodation ENT exam: Present: normal exam, normal oropharynx, mucous membranes moist Neck exam: Present: normal inspection, tenderness. Absent: meningismus, full ROM, lymphadenopathy, thyromegaly (Left lateral neck pain with movement and palpation) Respiratory exam: Present: normal lung sounds bilaterally. Absent: respiratory distress, wheezes, rales, rhonchi, stridor, chest wall tenderness, accessory muscle use, decreased breath sounds, prolonged expiratory Cardiovascular Exam: Present: regular rate, normal rhythm, normal heart sounds. Absent: systolic murmur, diastolic murmur, rubs, gallop, clicks GI/Abdominal exam: Present: soft, normal bowel sounds. Absent: distended, tenderness, guarding, rebound, rigid Extremities exam: Present: normal inspection, full ROM, normal capillary refill. Absent: tenderness, pedal edema, joint swelling, calf tenderness Back exam: Present: normal inspection, full ROM. Absent: tenderness, CVA tenderness (R), CVA tenderness (L), muscle spasm, paraspinal tenderness, vertebral tenderness, rash noted Neurological exam: Present: alert, oriented X3, CN II-XII intact Expanded Speech: Present: fluid speech Cranial nerves: EOM's Intact: Normal, Gag Reflex: Normal, Tongue Deviation: Normal, Facial Sensation: Normal, Facial Palsy with Forehead Movement: Normal, Facial Palsy without Forehead Movement: Normal Sensory exam: Upper Extremity Light Touch: Normal, Upper Extremity Temperature: Normal, Lower Extremity Light Touch: Normal, Lower Extremity Temperature: Normal Motor strength exam: RUE: 5, LUE: 5, RLE: 5, LLE: 5 Eye Response: (4) open spontaneously Motor Response: (6) obeys commands Verbal Response: (5) oriented [place] Total: 15 Psychiatric exam: Present: normal affect, normal mood Skin exam: Present: warm, dry, intact, normal color, other (Punch biopsy site to left posterior hip with erythematous base, no drainage, fluctuance or induration noted). Absent: rash, cyanosis, diaphoretic, erythema, petechiae, pallor, mottled Course Vital Signs 07/23/20 15:39 Temperature 98.4 F Pulse Rate 100 Respiratory 18 Rate Blood Pressure 135/71 O2 Sat by Pulse 96 Oximetry Medical Decision Making - Medical Decision Making 60-year-old female presents with a history of CVA, pneumonia, GERD, fibromyalgia and asthma. Surgical history of appendectomy cholecystectomy hysterectomy right shoulder and left elbow surgeries. Patient denies any cancer history. Patient awoke with left sided neck pain worse with palpation along the sternocleidomastoid muscle. X-ray shows there is a slight kyphotic curvature of the cervical spine which is consistent with spasms. Labs are within normal limits with no evidence of leukocytosis. Patient states did get relief with Norflex, morphine and IV fluids. Patient directed to take Flexeril as prescribed as it has worked in the past and use [id number] Salonpas. She also given a take-home pack of Tylenol 3 as needed for severe pain.. Patient directed to follow up with primary care doctor in 1 week. Patient agreeable to this plan of care case discussed with Dr. Domingo. - Lab Data Result diagrams: 07/23/20 17:36 07/23/20 17:36 Lab Results 07/23/20 07/23/20 Range/Units 17:36 17:36 WBC 10.8 H (3.8-10.6) k/uL RBC 4.27 (3.80-5.40) m/uL Hgb 14.2 (11.4-16.0) gm/dL Hct 40.9 (34.0-46.0) % MCV 95.9 (80.0-100.0) fL MCH 33.3 (25.0-35.0) pg MCHC 34.7 (31.0-37.0) g/dL RDW 12.5 (11.5-15.5) % Plt Count 273 (150-450) k/uL MPV 6.9 Neutrophils % 67 % Lymphocytes % 24 % Monocytes % 7 % Eosinophils % 0 % Basophils % 0 % Neutrophils # 7.3 (1.3-7.7) k/uL Lymphocytes # 2.6 (1.0-4.8) k/uL Monocytes # 0.8 (0-1.0) k/uL Eosinophils # 0.1 (0-0.7) k/uL Basophils # 0.0 (0-0.2) k/uL ESR 2 (0-20) mm/hr Sodium 138 (137-145) mmol/L Potassium 3.5 (3.5-5.1) mmol/L Chloride 107 (98-107) mmol/L Carbon Dioxide 22 (22-30) mmol/L Anion Gap 9 mmol/L BUN 9 (7-17) mg/dL Creatinine 0.54 (0.52-1.04) mg/dL Est GFR (CKD-EPI)AfAm >90 (>60 ml/min/1.73 sqM) Est GFR (CKD-EPI)NonAf >90 (>60 ml/min/1.73 sqM) Glucose 105 H (74-99) mg/dL Calcium 9.4 (8.4-10.2) mg/dL Disposition Clinical Impression: Torticollis, Acute torticollis Disposition: HOME SELF-CARE Condition: Fair Instructions (If sedation given, give patient instructions): Spasmodic Torticollis (ED) Additional Instructions: Take medication as prescribed and follow-up with the primary care doctor in [address] or drink alcohol while taking Flexeril. Prescriptions: Cyclobenzaprine [Flexeril] 5 mg PO TID PRN #15 tablet PRN Reason: Muscle Spasm Is patient prescribed a controlled substance at d/c from ED?: No Referrals: Adi Smith MD [Primary Care Provider] - 1-2 days Time of Disposition: 18:59
[2020-07-23 17:48] LABS: Basophils % (A) 0 %; Eosinophils # (A) 0.1 k/uL (0-0.7); Eosinophils % (A) 0 %; HCT 40.9 % (34.0-46.0); HGB 14.2 gm/dL (11.4-16.0); Lymphocytes # (A) 2.6 k/uL (1.0-4.8); Lymphocytes % (A) 24 %; MCH 33.3 pg (25.0-35.0); MCHC 34.7 g/dL (31.0-37.0); MCV 95.9 fL (80.0-100.0); Mean Platelet Volume 6.9; Monocytes # (A) 0.8 k/uL (0-1.0); Monocytes % (A) 7 %; Neutrophils # (A) 7.3 k/uL (1.3-7.7); Neutrophils % (A) 67 %; Platelet Count 273 k/uL (150-450); RBC 4.27 m/uL (3.80-5.40); RDW 12.5 % (11.5-15.5); WBC 10.8 k/uL (3.8-10.6)
[2020-07-23 18:00] LABS: African American GFR (CKD) >90 (>60 ml/min/1.73 sqM); Anion Gap 9 mmol/L; Blood Urea Nitrogen 9 mg/dL (7-17); Calcium 9.4 mg/dL (8.4-10.2); Carbon Dioxide 22 mmol/L (22-30); Chloride 107 mmol/L (98-107); Glucose 105 mg/dL (74-99); Non-African American GFR(CKD) >90 (>60 ml/min/1.73 sqM); Potassium 3.5 mmol/L (3.5-5.1); Sodium 138 mmol/L (137-145)
--- NOTE | 2020-07-23 18:19 | XR ---
EXAMINATION TYPE: XR cervical spine comp DATE OF EXAM: 07/23/2020 COMPARISON: 03/03/2017 HISTORY: Neck pain TECHNIQUE: 5 views FINDINGS: There is some straightening of the vertebra. There is disc space narrowing at C4-5 C5-6 wit h mild spurring of the endplates. There is a slight cervical kyphotic deformity. There are no cervica l ribs. Neuroforamina are fairly well-maintained. There is minimal uncovertebral spurring. Atlantoax[place] al facet joint is normal. IMPRESSION: There is some straightening of the cervical spine and slight kyphotic curvature that is m ore than old exam. This could relate to spasm or old ligamentous injury. No fracture seen.
[2020-07-23 18:28] LABS: Erythrocyte Sedimentation Rate 2 mm/hr (0-20)
[2020-07-23] MEDS ORDERED: ACET/COD 300 MG/30 MG STARTER PACK 6 TAB BTL PO STA (18:59)
[2020-07-23 19:15] VITALS: BP 132/78; PULSE 88
== END 2020-07-23 19:14 | disposition home or self-care (01) ==
LOC: EC 15:36
DX: M43.6 Torticollis (principal); J45.909 Unspecified asthma, uncomplicated; K21.9 Gastro-esophageal reflux disease without esophagitis; M79.7 Fibromyalgia; F41.9 Anxiety disorder, unspecified; Z86.73 Personal history of transient ischemic attack (TIA), and cerebral infarction without residual deficits
CPT/HCPCS: 36415; 80048; 85652; 85025; 72050; 99284; 96374; 96372; J2270; J2360